=== PATIENT | female | born 1965 | race American Indian/Alaskan Native ===

== ENCOUNTER 2017-05-12 07:05 | Inpatient (IN) | payer MEDICAID ==
--- NOTE | 2017-05-12 07:10 | ED PDOC ---
Arrival/HPI <Rolando Leon - Last Filed: 05/12/17 08:50> - General Historian: Patient - History of Present Illness Time/Duration: Prior to Arrival Symptom Onset: Sudden Symptom Course: Unchanged Activities at Onset: Other (getting ready this am) Context: Home <Isra Dee - Last Filed: 05/12/17 10:58> - General Chief Complaint: Shortness Of Breath Time Seen by Provider: 05/12/17 07:20 - History of Present Illness Narrative History of Present Illness (Text): 51 F with PMH of hyperthyroidism s/p thyroidectomy (now on levothyoxine), DM, HTN, HLD presents to ED for complaint of SOB/throat swelling. Patient states that it began this morning while getting ready. Patient states that this has been going on intermittently since she had her thyroidectomy 10 days ago. Patient was prescribed levothyroxine after the procedure. She is unsure of the dose since she left it at her sister's place. Patient admits to compliance with all her medications. Patient currenlty denies any pain. Exertion makes her symptoms worse while resting seems to help. Patient can walk 1-2 blocks before getting tired. Sleeps with 1-2 pillows. Unsure of last echo. PMD: Dr. Arriola PMH: hyperthyroidism s/p thyroidectomy, DM, HTN, HLD Meds: simvastatin, amlodipine, lisinopril, metformin, levothyroxine Allergy: NKDA PSH: Thyroidectomy, Hosp: denies FH: HTN, DM Social: denies tobacco/etoh/illicit drug use 05/12/17 08:49 (Isra Dee) Past Medical History - Provider Review Nursing Documentation Reviewed: Yes - Travel History Have you recently traveled outside [place] w/in the past 3 mons?: No <Isra Dee - Last Filed: 05/12/17 10:58> Family/Social History - Physician Review Nursing Documentation Reviewed: Yes Family/Social History: Diabetes, Hypertension <Isra Dee - Last Filed: 05/12/17 10:58> Allergies/Home Meds <Rolando Leon - Last Filed: 05/12/17 08:50> <Isra Dee - Last Filed: 05/12/17 10:58> Allergies/Adverse Reactions: Allergies No Known Allergies Allergy (Verified 05/12/17 07:27) Home Medications: Home Meds Medication Instructions Recorded Confirmed Levothyroxine Sodium [Unithroid] 88 mcg PO DAILY 05/12/17 05/12/17 Lisinopril [Zestril] 10 mg PO DAILY 05/12/17 05/12/17 Simvastatin 40 mg PO DIN 05/12/17 05/12/17 amLODIPine [Norvasc] 5 mg PO DAILY 05/12/17 05/12/17 metFORMIN [glucOPHAGE] 850 mg PO BID 05/12/17 05/12/17 Review of Systems - Review of Systems Constitutional: Fatigue. absent: Weight Change, Fevers, Night Sweats Eyes: absent: Vision Changes, Photophobia, Eye Pain ENT: Other (throat feels swollen). absent: Hearing Changes, Tinnitus, Epistaxis , Sinus Congestion Respiratory: SOB, Wheezing. absent: Cough, Sputum Cardiovascular: Palpitations, BRUCE. absent: Chest Pain, Edema, Calf Pain Gastrointestinal: Diarrhea. absent: Abdominal Pain, Constipation, Nausea, Vomiting, Hematochezia, Hematemesis Genitourinary Female: absent: Dysuria, Frequency Musculoskeletal: Other (tremor). absent: Arthralgias, Back Pain, Neck Pain, Myalgias Skin: absent: Rash, Pruritis, Skin Lesions Neurological: absent: Headache, Dizziness, Focal Weakness Endocrine: absent: Diaphoresis, Polyuria, Polydipsia, Other Hemo/Lymphatic: absent: Adenopathy, Easy Bleeding, Easy Bruising Psychiatric: Anxiety. absent: Depression, Suicidal Ideation <Isra Dee - Last Filed: 05/12/17 10:58> Physical Exam <Rolando Leon - Last Filed: 05/12/17 08:50> Vital Signs Reviewed: Yes Temperature: Afebrile Blood Pressure: Normal Pulse: Regular Respiratory Rate: Normal Appearance: Positive for: Uncomfortable Pain Distress: None Mental Status: Positive for: Alert and Oriented X 3 - Systems Exam Head: Present: Atraumatic, Normocephalic Pupils: Present: PERRL Extroacular Muscles: Present: EOMI Conjunctiva: Present: Normal Mouth: Present: Moist Mucous Membranes, Normal Lips, Normal Tounge Pharnyx: No: ERYTHEMA, EXUDATE Nose (External): Present: Atraumatic Nose (Internal): Present: Normal Inspection Neck: Present: Normal Range of Motion, Trachea Midline, Other (transverse scar at base of neck) Respiratory/Chest: Present: Wheezes. No: Respiratory Distress, Accessory Muscle Use Cardiovascular: Present: Regular Rate and Rhythm, Normal S1, S2, Peripheal Pulses Present Abdomen: No: Tenderness, Distention, Normal Bowel Sounds Back: No: CVA Tenderness Upper Extremity: Present: Normal ROM, NORMAL PULSES, Neurovascularly Intact, Capillary Refill < 2s. No: Edema Lower Extremity: Present: NORMAL PULSES, Normal ROM, Neurovascularly Intact, Capillary Refill < 2 s. No: Edema Neurological: Present: GCS=15, CN II-XII Intact, Speech Normal, Motor Func Grossly Intact, Normal Sensory Function Skin: Present: Dry, Normal Color. No: Rashes Lymphatic: No: Cervical Adenopathy, Axillary Adenopathy, Inguinal Adenopathy Psychiatric: Present: Alert, Oriented x 3 <Isra Dee - Last Filed: 05/12/17 10:58> Vital Signs Temp Pulse Resp BP Pulse Ox 05/12/17 09:26 85 16 112/79 96 05/12/17 07:33 97.9 F 81 18 96/57 L 98 Medical Decision Making <Rolando Leon - Last Filed: 05/12/17 08:50> - Lab Interpretations I have reviewed the lab results: Yes Interpretation: No sign. chg./baseline - RAD Interpretation Certified Surgical Assistant: ED Physician, Radiologist - EKG Interpretation Interpreted by ED Physician: Yes Type: 12 lead EKG <Isra Dee - Last Filed: 05/12/17 10:58> ED Course and Treatment: 05/12/17 08:10 Patient was seen and evaluated with resident. Came up with plan and treatment together. A 51 year old female with sensation of throat swelling and shortness of breath / BRUCE. On physical exam, patient has mild exp wheezing. In no resp. distress. Pharynx and tonsils appear normal. Tongue unremarkable. No floor of mouth pain or elevation. Pt speaking full sentences without difficulty and in no resp distress. 05/12/17 08:51 after nebs, pt's wheezing improved BNP unremarkable pt reports she is feeling better, but remains symptomatic. 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 Case discussed with Dr. Dominguez and she accepted the admission. She instructed for Pulmonology consult (Dr. Quiñonez) (Isra Dee) - Lab Interpretations Narrative Lab Interpretation (Text): Hgb 10.7 otherwise no abnormality or significant change from baseline (Isra Dee) Lab Results: 05/12/17 07:35 05/12/17 07:35 Lab Results 05/12/17 08:12: NT-Pro-B Natriuret Pep 19.9 05/12/17 07:35: Sodium 136, Potassium 4.1, Chloride 99, Carbon Dioxide 27, Anion Gap 14, BUN 10, Creatinine 1.1, Est GFR ( Amer) > 60, Est GFR (Non- Af Amer) 52, Random Glucose 93, Calcium 8.6, Magnesium 2.0, Total Bilirubin 0.5 , AST 23, ALT 24, Alkaline Phosphatase 84, Lactate Dehydrogenase 448, Total Creatine Kinase 147, Troponin I < 0.01, Total Protein 8.0, Albumin 4.2, Globulin 3.8, Albumin/Globulin Ratio 1.1 05/12/17 07:35: WBC 7.3, RBC 4.40, Hgb 10.7 L, Hct 33.1 L, MCV 75.2 L, MCH 24.3 L, MCHC 32.3, RDW 16.0 H, Plt Count 233, MPV 10.4, Gran % 61.1, Lymph % (Auto) 31.0, [place] % (Auto) 5.6, Eos % (Auto) 1.9, Baso % (Auto) 0.4, Gran # 4.47, Lymph # 2.3, [place] # 0.4, Eos # 0.1, Baso # 0.03 - RAD Interpretation Narrative RAD Interpretations (Text): CXR: No active disease (Isra Dee) Radiology Orders: 05/12/17 07:44 CHEST PORTABLE [RAD] Stat - EKG Interpretation EKG Interpretation (Text): NSR at 79 bpm (Isra Dee) - Medication Orders Current Medication Orders: Discontinued Medications Albuterol/Ipratropium (Duoneb 3 Mg/0.5 Mg (3 Ml) Ud) 3 ml IH STAT STA Stop: 05/12/17 07:32 Last Admin: 05/12/17 07:52 Dose: 3 ml Diphenhydramine HCl (Benadryl) 25 mg IVP STAT STA Stop: 05/12/17 07:33 Last Admin: 05/12/17 07:52 Dose: 25 mg Methylprednisolone (Solu-Medrol) 125 mg IVP STAT STA Stop: 05/12/17 07:32 Last Admin: 05/12/17 07:53 Dose: 125 mg - Scribe Statement The provider has reviewed the documentation as recorded by the Scribe <Rolando Leon - Last Filed: 05/12/17 08:50> - PA / SOFTWARE TEST DEVELOPER / Resident Statement / has reviewed & agrees with the documentation as recorded. MD/ has examined the patient and agrees with the treatment plan. <Isra Dee - Last Filed: 05/12/17 10:58> - Scribe Statement Rajesh Calle Provider Scribe Attestation: All medical record entries made by the Scribe were at my direction and personally dictated by me. I have reviewed the chart and agree that the record accurately reflects my personal performance of the history, physical exam, medical decision making, and the department course for this patient. I have also personally directed, reviewed, and agree with the discharge instructions and disposition. (Rolando Leon) Disposition/Present on Arrival <Rolando Leon - Last Filed: 05/12/17 08:50> - Present on Arrival Any Indicators Present on Arrival: No History of DVT/PE: No History of Uncontrolled Diabetes: No Urinary Catheter: No History of Decub. Ulcer: No - Disposition Have Diagnosis and Disposition been Completed?: Yes Disposition Time: 09:30 Patient Plan: Admission, Telemetry <Isra Dee - Last Filed: 05/12/17 10:58> - Disposition Diagnosis: Shortness of breath Disposition: HOSPITALIZED Patient Problems: Current Active Problems Problem Status Onset Shortness of breath Acute Condition: STABLE
[2017-05-12] MEDS ORDERED: Albuterol-Ipratrop 3 mg / 0.5 (3 ml) UD IH STA (07:31)
[2017-05-12] MEDS ORDERED: DiphenhydrAMINE 50 mg/ml Inj IVP STA (07:32)
[2017-05-12 07:47] VITALS: BMI 33.6
[2017-05-12 07:53] LABS: BASO # 0.03 K/mm3 (0.0-2.0); BASO % 0.4 % (0.0-3.0); EOS # 0.1 (0.0-0.7); EOS % 1.9 % (1.5-5.0); GRAN # 4.47 (1.4-6.5); GRAN % 61.1 % (50.0-68.0); HEMOGLOBIN 10.7 gm/dL (12.0-16.0); LYMPH # 2.3 (1.2-3.4); MEAN CELL VOLUME 75.2 fL (80.0-105.0); MEAN CORPUSCULAR HEMOGLOBIN 24.3 pg (25.0-35.0); MEAN CORPUSCULAR HGB CONC 32.3 g/dl (31.0-37.0); MEAN PLATELET VOLUME 10.4 fl (7.0-11.0); MONO # 0.4 (0.1-0.6); MONO % 5.6 % (1.0-6.0); PLATELET COUNT 233 10^3/uL (120.0-450.0); WHITE BLOOD COUNT 7.3 10^3/ul (4.5-11.0)
[2017-05-12 08:06] LABS: ALB/GLOB RATIO 1.1 (1.1-1.8); ALBUMIN 4.2 g/dL (3.0-4.8); ALT/SGPT 24 U/L (7-56); AST/SGOT 23 U/L (15-39); BLOOD UREA NITROGEN 10 mg/dL (7-21); CALCIUM 8.6 mg/dL (8.4-10.5); GFR AFRICAN-AMERICAN > 60; GFR NON-AFRICAN AMERICAN 52
[2017-05-12 08:26] LABS: TROPONIN I < 0.01 ng/mL
--- NOTE | 2017-05-12 09:11 | RAD ---
HISTORY: Shortness of breath COMPARISON: No prior. FINDINGS: LUNGS: The lungs are well inflated and clear. PLEURA: No significant pleural effusion identified, no pneumothorax apparent. CARDIOVASCULAR: Normal. OSSEOUS STRUCTURES: No significant abnormalities. VISUALIZED UPPER ABDOMEN: Normal. OTHER FINDINGS: None. IMPRESSION: No active pulmonary disease.
[2017-05-12 11:45] LABS: T4 7.6 ug/dL (5.5-11.0)
[2017-05-12] MEDS ORDERED: Pneumococcal 23-Valent Vaccine IM ONE (13:17)
[2017-05-12] MEDS: Albuterol-Ipratrop 3 mg / 0.5 (3 ml) UD IH SCH ×2 (13:59→19:47)
[2017-05-12] MEDS: cefTRIAXone 1 gm 1 GM/100 ML BAG IVPB SCH (14:42)
--- NOTE | 2017-05-12 16:37 | CARD ---
APPROVED REPORT EKG Measurement Heart [id number] <Conclusion> Normal sinus rhythm Possible Left atrial enlargement Borderline ECG
[2017-05-12] MEDS: Insulin Reg-LOW-Coverage SC SCH ×2 (17:10→21:31)
[2017-05-12] MEDS: MethylPREDNISolone 40 mg Vial IVP SCH (21:27)
--- NOTE | 2017-05-13 06:25 | CON ---
ENDOCRINOLOGY CONSULTATION LOCATION: Room 374. HISTORY OF PRESENT ILLNESS: This is a 51-year-old female with known history of type 2 diabetes, hypertension, and recent hypothyroidism presenting here with progressive shortness of breath, initially on exertion and than at rest and has been evaluated to have exacerbation of COPD and asthmatic bronchitis and started on IV steroids therapy as noted. She has been referred now for endocrine evaluation and management. PAST MEDICAL HISTORY: History of recent thyroidectomy about 10 days ago and was started on levothyroxine replacement therapy postoperatively, history of type 2 diabetes, currently on metformin given at 850 mg b.i.d., history of hypertension, and dyslipidemia. FAMILY HISTORY: Positive for diabetes and hypertension. SOCIAL HISTORY: The patient has a supportive family. No known substance use. REVIEW OF SYSTEMS: As mentioned above, admits to generalized body weakness with easy fatigability and tiredness and suboptimal energy level. Also admits to episodic bouts of dizziness and lightheadedness worse on the day of admission. No recent chest pain, palpitations or PND, but admits to progressive shortness of breath, initially on exertion and than at rest. Her oral intake has been variable and suboptimal with nausea, dyspepsia, and vague upper abdominal pain. Also admits to habitual constipation. PHYSICAL EXAMINATION: GENERAL: This is an overweight female in no apparent distress. VITAL SIGNS: Blood pressure of 140/80, pulse of 70 beats per minute and regular, temperature 98, and respirations of 20, height is 5 feet 3 inches, and weight is 190 pounds. HEENT: Head is normocephalic. Eyes anicteric with pink conjunctivae. Funduscopy not possible at this time. Ears, nose and throat otherwise normal. NECK: Supple. Thyroid gland is nonpalpable with healing incision in the anterior aspect of the neck in the thyroid bed area and no cervical adenopathy noted. HEART: Adynamic precordium. S1 and S2 is rapid and regular. LUNGS: Clear to auscultation. ABDOMEN: Flat and soft with positive bowel sounds. EXTREMITIES: No peripheral edema. Pulses are +2 bilaterally. LABORATORY DATA: Her chemistry showed a BUN of 10, sodium 136, potassium 4.1, chloride 99, CO2 of 27, glucose 93, and creatinine 1.1. Her T4 is 7.6 with a TSH of 58.6. ASSESSMENT: This is a 51-year-old female with overt surgical hypothyroidism as expected with recent thyroidectomy procedure as noted. She remains; however, clinically euthyroid at this time, but historically has already constitutional symptoms of easy fatigability, tiredness and progressive shortness of breath especially on exertion. PLAN OF MANAGEMENT: The patient clearly at this time needs a much higher dose regimen for the levothyroxine and as expected from the recent thyroidectomy procedure as undertaken. We will increase the levothyroxine to 125 mcg daily as ordered to start tomorrow morning before breakfast. We will obtain comprehensive thyroid hormonal profile with a total T4, TSH, and free T4 with thyroid peroxidase antibody, which will confirm and indicates the presence of underlying thyroid autoimmunity. We will obtain serial chemistries and supplement accordingly as needed. We will follow and advise accordingly. Zulema Flowers MD
--- NOTE | 2017-05-13 06:26 | CON ---
PULMONARY CONSULTATION DATE: 05/12/2017 REFERRING PHYSICIAN: Dr. Dominguez REASON FOR CONSULT: Cough, shortness of breath, stridor on admission, status post thyroidectomy. HISTORY OF PRESENT ILLNESS: This is a 51 years old female with past medical history significant for thyroid goiter with hyperthyroidism, recently has thyroidectomy, that was just few days ago with diabetes, hypertension, hyperlipidemia, was sent home about 4 days ago. While at home, started developing more short of breath, stridor, so comes to emergency room, found to have a wheezing, and upper airway . She receives steroids, inhaled bronchodilator with good response, presently sitting up in a chair, feels better, feels a little short of breath, no hemoptysis, no hematemesis, no hematuria, no diarrhea. Does not know if snores, but daytime sleepy and tired. PAST MEDICAL HISTORY: Thyroid goiter, status post thyroidectomy, diabetes, hypertension, and hyperlipidemia. ALLERGIES: NONE KNOWN. SOCIAL HISTORY: Denies any smoking or alcohol use. FAMILY HISTORY: Positive for diabetes and hypertension. HOME MEDICATIONS: Include simvastatin, amlodipine, lisinopril, metformin, and levothyroxine. Presently also DuoNeb q. 6 hours, insulin coverage, and Solu-Medrol 40 mg q. 12 hours. REVIEW OF SYSTEMS: No headaches, no rhinitis, has a soreness of the incision site, mild shortness of breath, no chest pain, no nausea,no vomiting. Denies leg pain or leg swelling. PHYSICAL EXAMINATION GENERAL: Sitting up in the chair, in no acute distress. VITAL SIGNS: Temperature is 98, heart rate is 98, respiratory rate is 18, blood pressure 102/73, pulse ox 98% on room air. HEENT: Moist mucous membranes. Crowded airway. Mallampati score is III. NECK: Supple. Has a neck incision, healing well. Mild tenderness. LUNGS: Fair airflow with few rhonchi. There is no stridor at present time. HEART: S1 and S2. ABDOMEN: Soft, nontender, no organomegaly. EXTREMITIES: No edema. NEUROLOGIC: Awake, alert, follow simple commands. LABORATORY DATA: Shows hemoglobin 10.7, hematocrit 33.1, WBC 7.3, platelet is 233. Sodium 136, potassium 4.1, chloride 99, bicarbonate 27, BUN 10, creatinine 1.1, glucose 131, calcium 8.6, magnesium 2.0, AST 23, ALT 24, alk phos is 84, troponin less than 0.01, proBNP 19, albumin is 4.2, TSH is 58. Chest x-ray is unremarkable. No infiltrate. IMPRESSION AND PLAN: Status post thyroidectomy, according to patient it was benign goiter, but no cancer; history of diabetes; hypertension; hypothyroid; need to rule out abscess or hematoma. We will get CT of the neck without contrast. Continue IV and inhaled bronchodilator, keep head at 45 degree. Continue Synthroid. Thank you and we will follow with you. Devika Quiñonez MD
[2017-05-13 07:00] LABS: ALB/GLOB RATIO 1.1 (1.1-1.8); ALBUMIN 4.1 g/dL (3.0-4.8); ALT/SGPT 23 U/L (7-56); AST/SGOT 24 U/L (15-39); BLOOD UREA NITROGEN 14 mg/dL (7-21); GFR AFRICAN-AMERICAN > 60; GFR NON-AFRICAN AMERICAN 52
[2017-05-13 07:23] LABS: FREE T4 0.73 ng/dL (0.78-2.19); T4 6.5 ug/dL (5.5-11.0)
[2017-05-13] MEDS: Insulin Reg-LOW-Coverage SC SCH ×4 (07:54→22:06)
[2017-05-13] MEDS: Albuterol-Ipratrop 3 mg / 0.5 (3 ml) UD IH SCH ×4 (08:03→22:06)
[2017-05-13] MEDS: Levothyroxine 125 MCG TAB PO SCH (08:33)
[2017-05-13] MEDS: cefTRIAXone 1 gm 1 GM/100 ML BAG IVPB SCH (09:51)
[2017-05-13] MEDS: MethylPREDNISolone 40 mg Vial IVP SCH ×2 (09:51→22:08)
[2017-05-13] MEDS ORDERED: Levothyroxine 88 MCG TAB PO SCH (10:00)
--- NOTE | 2017-05-13 14:47 | CT ---
PROCEDURE: CT NECK WITHOUT CONTRAST HISTORY: s/p thyroidectomy, with strider COMPARISON: None. TECHNIQUE: CT of the neck without intravenous contrast as requested. Coronal and sagittal reformats generated. Radiation dose: DLP 287 mGy-cm This CT exam was performed using one or more of the following dose reduction techniques: Automated exposure control, adjustment of the mA and/or kV according to patient size, and/or use of iterative reconstruction technique. FINDINGS: NASOPHARYNX: Unremarkable. SUPRAHYOID NECK: Unremarkable oropharynx, oral cavity, parapharyngeal space and retropharyngeal space. INFRAHYOID NECK: Postoperative thyroidectomy change are identified including the operative site containing fluid and trace gas with trace gas identified deep to the right external hiatal aid muscle most likely. This limited gas is likely superficial to the thyrohyoid muscle. The lack of intravenous contrast limits the evaluate limits the full characterization of this postoperative fluid collection which is positioned slightly greater the right than left thyroid bed overlying the Superior and mid tracheal levels without displacement or deformity of the trachea resulting. The collection measures 4.1 x 1.7 x 2.2 cm (series changes by anteroposterior by superoinferior dimensions). Fluid does not appear to dissect below the level of clavicles which is the termination of the this CT examination. Fluid collections is felt to be postoperative with abscess not favored but not fully excluded.. Further clinical correlation pelvis advised given lack of intravenous contrast. Images through the larynx reveal no vocal cord deviation or deformity. The pharyngeal laryngeal and tracheal airway appear widely patent. MASS: None. GLANDS: Parotid and submandibular glands unremarkable. Prior thyroidectomy. LYMPH NODES: Normal. No lymphadenopathy. CERVICAL SPINE: No fracture or focal lesion. OTHER FINDINGS: None. IMPRESSION: 1. Post thyroidectomy, a 4.1 cm fluid collection is appreciate the operative site with associated trace gas dissecting deep to the right sided strap muscles. No gas seen associated with the fluid collection specifically and postoperative seroma is favored over abscess. The lack images contrast limits definition of this fluid collection, particularly in evaluation for potential abscess and further clinical correlation is advised. Clinical and potential CT follow-up is advised. 2. Widely patent supra and infrahyoid airway as discussed above.
--- NOTE | 2017-05-13 15:38 | PN ---
DATE: 05/13/2017 PULMONARY PROGRESS NOTE REFERRING PHYSICIAN: Dr. Dominguez. SUBJECTIVE: She is lying on the bed, head at 47 degree; feels better; no stridor; no cough; no sputum production; no nausea or vomiting. Denies leg pain or leg swelling. PHYSICAL EXAMINATION: GENERAL: No acute distress. VITAL SIGNS: Temperature is 98, heart rate is 102, respiratory rate is 20, blood pressure 110/69, pulse ox 100% on room air. HEENT: Moist mucous membranes. Crowded airway. NECK: Supple. No JVD. Neck wound healing well. LUNGS: Fair airflow with few rhonchi. HEART: S1 and S2. ABDOMEN: Soft and nontender. No organomegaly. EXTREMITIES: There is no edema. NEUROLOGIC: Awake, alert, follows simple commands. MEDICATIONS: She is on DuoNeb q. 6 hours; metformin 850 mg twice a day; insulin coverage; Lipitor 5 mg daily; Pepcid 40 mg daily; Rocephin 1 g daily; Solu-Medrol 40 mg q. 12 hours; Synthroid 125 mcg daily; Zestril 10 mg daily. LABORATORY DATA: Shows sodium 137, potassium 4.9, chloride 101, bicarbonate 26, BUN 14, creatinine 1.1, glucose 145, calcium is 9.0, AST 24, ALT 23, alk phos is 73, total protein is 7.7, albumin 4.1, free T4 is 0.7, free TSH is 6.79. CT of the neck done, but report is still pending. IMPRESSION AND PLAN: Status post thyroidectomy, according to the patient which was benign goiter; history of diabetes; hypertension; hypothyroid; admitted with stridor and shortness of breath. CT of the neck is done; report is pending. Continue bronchodilator, keep head at 45 degree, gastric prophylaxis, seen by endocrinology, replacement therapy has been given. Thank you and we will follow with you. Devika Quiñonez MD
--- NOTE | 2017-05-13 20:19 | HP ---
DATE: 05/12/2017 CHIEF COMPLAINT: Shortness of breath. HISTORY OF PRESENT ILLNESS: Ms. Diana Brumfield is a 51 years old lady with history of hyperthyroidism status post thyroidectomy, now on levothyroxine, done in [facility], history of diabetes mellitus, hypertension, hypercholesterolemia came to the emergency room with complaints of shortness of breath, throat swelling. The patient says that this began this morning while getting ready. The patient says that this has been going on intermittently, shortness of breath. She had her thyroidectomy 10 days ago. The patient was prescribed levothyroxine after procedure. She is unsure of dose since she left it at her sister's place. The patient admits to compliant with all her medication. The patient currently denies any nausea, vomiting, diarrhea and according to her shortness of breath especially come on exertion. The patient can walk 1-2 block before getting tired. Sleep with 1-2 pillows. Unsure about the last echo. The patient last seen in the emergency room by me. Discussion done with Dr. Quiñonez. PAST MEDICAL HISTORY: Hyperthyroidism status post thyroidectomy, diabetes mellitus, hypertension, hypercholesterolemia. HOME MEDICATIONS: Simvastatin, amlodipine, lisinopril, metformin, levothyroxine. ALLERGIES: THE PATIENT IS NOT ALLERGIC WITH ANY MEDICATIONS. PAST SURGICAL HISTORY: Thyroidectomy, section. HABITS: Denies smoking, drugs, and ethanol. REVIEW OF SYSTEMS: The patient is seen and examined at the bedside in ER. Complaining about swelling in the neck and shortness of breath on exertion. No nausea, vomiting, or diarrhea. No hematochezia. No headache. No dizziness. No swelling of the leg. No hematuria. PHYSICAL EXAMINATION VITAL SIGNS: Temperature 98.2, pulse 79, blood pressure 108/65, respiratory rate 20. HEENT: Head is normocephalic and atraumatic. Eyes PERRLA. Extraocular muscles are intact. Conjunctivae clear. Nose patent. Mucous membranes moist. NECK: Supple. Front of the neck at the place of thyroidectomy scar jenifer, there is a swelling. CHEST: Clear to auscultation. HEART: S1 and S2 positive. ABDOMEN: Soft. Bowel sounds positive. No organomegaly. EXTREMITIES: No edema. No cyanosis. NEUROLOGIC: The patient is awake and alert. Moving all four extremities. No focal deficit. LABORATORY DATA: White blood cell 7.3, hemoglobin 10.7, hematocrit 33.1, and platelet 233. Sodium 137, potassium 4.9, BUN 14, creatinine 1.1, and glucose 114. TSH 6.79. ASSESSMENT AND PLAN: Ms. Diana Brumfield a 51 years old lady with anemia, diabetes mellitus, history of hyperthyroidism status post thyroidectomy now has hypothyroidism. Recall consult with Lionel Poole, [facility] to get her opinion with CAT scan of the neck. Soft tissue results are pending. History of thyroid goiter, hypercholesterolemia, shortness of breath and swelling in the neck. According to the patient, she has benign goiter and no cancer. Need to rule out abscess or hematoma at surgical place. Continue IV and inhaled bronchodilators. Keep head elevation for 45 degrees. Continue Synthroid. Discussion done with Dr. Quiñonez. GI and DVT prophylaxis. We will follow. Edie Dominguez MD [id number]
--- NOTE | 2017-05-13 22:33 | PN ---
ENDOCRINOLOGY FOLLOWUP NOTE Room #374. SUBJECTIVE: This is a 51-year-old female with recent thyroidectomy and supervening surgical hypothyroidism and is now being followed closely for metabolic management. She also presented here with progressive shortness of breath and was evaluated to have acute exacerbation of asthmatic bronchitis and COPD and has been started on IV steroids therapy as given. Her latest chemistry showed BUN of 14, sodium 137, potassium 4.9, chloride 101, CO2 of 26, glucose 126, and creatinine 1.1. Her glucose levels have ranged from 114 to 145 and 156 mg/dL. Her hemoglobin A1c 6.5%, which is near optimal and indicative of very good control of her diabetic condition and just oral hypoglycemic therapy is given. Her latest thyroid study showed T4 is 6.5 with a TSH of 6.79 and free T4 of 0.73, so at this time, we will continue the higher dosing of the levothyroxine given as 125 mcg daily before breakfast as ordered. We will obtain serial chemistries and supplement accordingly as needed. We will follow with you. Zulema Flowers MD
[2017-05-14] MEDS: Albuterol-Ipratrop 3 mg / 0.5 (3 ml) UD IH SCH ×4 (01:01→19:50)
--- NOTE | 2017-05-14 06:23 | PN ---
SUBJECTIVE: The patient is seen and examined at the bedside. Actually, she went for CAT scan of the neck, but cannot tolerate the procedure, then I had length of time discussion with the nurse and ordered Xanax before procedure and after giving Xanax, she was comfortable, then CAT scan of the neck was done. No nausea, vomiting, or diarrhea. No cough. No sputum production. Denies swelling of the leg. No hematuria, no hematochezia. PHYSICAL EXAMINATION: VITAL SIGNS: Temperature is 98, heart rate is 102, respiratory rate 20, and blood pressure 110/70. HEENT: Head is normocephalic and atraumatic. Eyes; PERRLA. Extraocular muscles are intact. Conjunctivae clear. Nose patent. Mucous membranes moist. NECK: Supple. No JVD. Neck wound healing very well, but under the wound, there is slight swelling. LUNGS: Fair airflow with few rhonchi. HEART: S1 and S2 positive. ABDOMEN: Soft and nontender. No organomegaly. EXTREMITIES: No edema. No cyanosis. NEUROLOGIC: The patient is awake and alert. Moving all four extremities. No focal deficit. MEDICATIONS: DuoNeb, metformin, Lipitor, Pepcid, Rocephin, Solu-Medrol, Synthroid, and Zestril. LABORATORY DATA: Sodium 137, potassium 4.9, BUN 14, creatinine 1.1, and glucose 145. AST 24, ALT 23, and TSH 6.79. ASSESSMENT AND PLAN: Ms. Octaviano Ortiz is 51 years old lady status post thyroidectomy, thyroid goiter as per patient it was benign, history of uncontrolled diabetes mellitus, hypertension, hypothyroidism. Shortness of breath is better. CAT scan of the neck done. The water engineer is on the case. Continue bronchodilators, gastric prophylaxis. Reviewed Dr. Quiñonez's notes. Reviewed Dr. Zulema Flowers's notes also. CAT scan of the neck showed there is a 4.1 cm fluid collection, it is appreciated with the operative site with associated trace air dissecting deep to the right side strap muscles. I reviewed CAT scan, GI and DVT prophylaxis, and repeat labs. We will follow. Edie Dominguez MD MTDSanjiv
[2017-05-14] MEDS: Insulin Reg-LOW-Coverage SC SCH ×4 (07:53→21:23)
[2017-05-14] MEDS: Levothyroxine 125 MCG TAB PO SCH (08:12)
[2017-05-14] MEDS: cefTRIAXone 1 gm 1 GM/100 ML BAG IVPB SCH (09:38)
[2017-05-14] MEDS: MethylPREDNISolone 40 mg Vial IVP SCH ×2 (09:39→21:27)
--- NOTE | 2017-05-14 17:06 | MRI ---
PROCEDURE: MRI NECK WITHOUT CONTRAST HISTORY: neck swelling; recent h/o thyroidectomy COMPARISON: None. TECHNIQUE: Multiplanar multisequence MR images of the neck were obtained without gadolinium enhancement. FINDINGS: NASOPHARYNX: Unremarkable. SUPRAHYOID NECK: Unremarkable oropharynx, oral cavity, parapharyngeal space and retropharyngeal space. INFRAHYOID NECK: Unremarkable larynx, hypopharynx, and supraglottic space. Vocal cords intact. MASS: None. GLANDS: Parotid and submandibular glands unremarkable. By history the thyroid has been recently removed. There is some edema and fluid within the thyroid bed and the subcutaneous tissues anterior to the thyroid. There is no evidence of a discrete mass or hematoma LYMPH NODES: Normal. No lymphadenopathy. VASCULAR STRUCTURES: Unremarkable. OTHER FINDINGS: None. IMPRESSION: Edema and fluid within the region of the recently resected thyroid. No evidence of a discrete hematoma or abscess
--- NOTE | 2017-05-14 19:37 | CP.PCM.PCO ---
Physician Communication Note - Physician Communication Note Physician Communication Note: I will be away til 06/01:Aj pizarro
--- NOTE | 2017-05-14 20:41 | PN ---
ENDO FOLLOWUP NOTE ROOM: 374. This is a 51-year-old female with recent admission for progressive shortness of breath and acute exacerbation of COPD and asthmatic bronchitis, currently on IV steroid therapy and is also now being followed closely for metabolic management. She had a recent thyroidectomy for a multinodular goiter and currently has been evaluated to have overt hypothyroidism and started on a higher dose of levothyroxine replacement therapy for which she is tolerating fairly well at this time. Her latest glucose values have ranged from 133 to 150 mg/dL. Her latest chemistries showed a BUN of 14, sodium 137, potassium 4.9, chloride 101, CO2 of 26, glucose 126, creatinine 1.1. Her latest thyroid study shows a T4 of 6.5 with a TSH of 6.79 and the free T4 of 0.73. So at this time, we will continue the same levothyroxine dose, modify to higher regimen of 125 mcg once daily before breakfast as ordered. We will titrate as indicated to optimize metabolic control. We will follow her twice . Zulema Flowers MD
--- NOTE | 2017-05-15 01:01 | CP.PCM.CON ---
History of Present Illness - History of Present Illness History of Present Illness: Consult note- perincisional fluid General Surgery Dr. Hopper 51 F PMH of DM, HTN, HLD hyperthyroidism s/p thyroidectomy at [facility] currently on levothyroxine presented to ED for SOB/throat swelling. Pt had surgery on the 05/01/17. Pt complaining that voice is not back to normal and has difficulty with deep breathes. Surgeon was Dr. Carrera and does not feel comfortable going back to the surgeon. During the procedure she was taken back twice on the same day as the pressure claims "pressure release". Patient currenlty denies any pain. PMH: hyperthyroidism s/p thyroidectomy, DM, HTN, HLD PSH: Thyroidectomy, Allergy: NKDA Social: denies tobacco/etoh/illicit drug use Past Patient History - Past Social History Smoking Status: Never Smoked - CARDIAC Hx Cardiac Disorders: Yes Hx Hypertension: Yes - PULMONARY Hx Respiratory Disorders: No - NEUROLOGICAL Hx Neurological Disorder: No - ENDOCRINE/METABOLIC Hx Endocrine Disorders: Yes Hx Diabetes Mellitus Type 2: Yes Other/Comment: thyroidectomy 05/01/17 - INTEGUMENTARY Other/Comment: transverse scar base of neck - MUSCULOSKELETAL/RHEUMATOLOGICAL Hx Falls: No - GASTROINTESTINAL Other/Comment: had thyroidectomy 05/01/17 was vomiting and unable to eat post op now eating oranges and applesause but having watery stools after eating - GENITOURINARY/GYNECOLOGICAL Hx Genitourinary Disorders: Yes (dx with fibroids 5 yrs ago) Other/Comment: has menses 2x's a month normal flow as per pt - PSYCHIATRIC Hx Substance Use: No - SURGICAL HISTORY Hx Surgeries: Yes Hx Appendectomy: Yes (age 7) - ANESTHESIA Hx Anesthesia: Yes Hx Anesthesia Reactions: No Hx Malignant Hyperthermia: No Meds Allergies/Adverse Reactions: Allergies Allergy/AdvReac Type Severity Reaction Status Date / Time No Known Allergies Allergy Verified 05/12/17 07:27 - Medications Medications: Current Medications Albuterol/Ipratropium (Duoneb 3 Mg/0.5 Mg (3 Ml) Ud) 3 ml IH [id number] [facility] Last Admin: 05/14/17 19:50 Dose: 3 ml Amlodipine Besylate (Norvasc) 5 mg PO DAILY [facility] Last Admin: 05/14/17 09:39 Dose: 5 mg Atorvastatin Calcium (Lipitor) 20 mg PO DIN [facility] Last Admin: 05/14/17 17:19 Dose: 20 mg Famotidine (Pepcid) 40 mg PO HS [facility] Last Admin: 05/14/17 21:28 Dose: 40 mg Ceftriaxone Sodium (Rocephin 1 Gram Ivpb) 1 gm in 100 mls @ 100 mls/hr IVPB DAILY [facility] PRN Reason: Protocol Last Admin: 05/14/17 09:38 Dose: 100 mls/hr Insulin Human Regular (Humulin R Low) 0 units SC ACHS [facility] PRN Reason: Protocol Last Admin: 05/14/17 21:23 Dose: Not Given Levothyroxine Sodium (Synthroid) 125 mcg PO ACB [facility] Last Admin: 05/14/17 08:12 Dose: 125 mcg Lisinopril (Zestril) 10 mg PO DAILY [facility] Last Admin: 05/14/17 09:38 Dose: 10 mg Metformin HCl (Glucophage) 850 mg PO BID [facility] Last Admin: 05/14/17 17:19 Dose: 850 mg Methylprednisolone (Solu-Medrol) 20 mg IVP Q12 [facility] Last Admin: 05/14/17 21:27 Dose: 20 mg Physical Exam - Constitutional Appears: Non-toxic, No Acute Distress - Eye Exam Eye Exam: EOMI - ENT Exam ENT Exam: Mucous Membranes Moist - Neck Exam Additional comments: two incisions suprasternal. C/D/I indurated non-fluctuant - Respiratory Exam Respiratory Exam: Clear to Auscultation Bilateral, NORMAL BREATHING PATTERN. absent: Accessory Muscle Use, Chest Wall Tenderness, Rales - Cardiovascular Exam Cardiovascular Exam: +S1, +S2 - GI/Abdominal Exam GI & Abdominal Exam: Normal Bowel Sounds, Soft. absent: Distended, Guarding, Hernia, Mass Results - Vital Signs Recent Vital Signs: Last Vital Signs Temp 98.3 F 05/14/17 22:00 Pulse 98 H 05/14/17 22:00 Resp 19 05/14/17 22:00 BP 112/80 05/14/17 22:00 Pulse Ox 99 05/14/17 22:00 - Labs Result Diagrams: 05/12/17 07:35 05/13/17 06:00 Labs: Laboratory Results - last 24 hr 05/13/17 05/14/17 05/14/17 06:00 07:24 11:22 POC Glucose (mg/dL) 118 H 133 H Thyroperoxidase Ab <1 Thyroglobulin Antibody <1 05/14/17 05/14/17 15:42 21:11 POC Glucose (mg/dL) 150 H 134 H Thyroperoxidase Ab Thyroglobulin Antibody Assessment & Plan - Assessment and Plan (Free Text) Assessment: 51F hypothyroidsm s/p thyroidectomy at [place], with periincsional fluid Plan: c/w medical management recommend f/u with primary surgeon. CT scan shows 4.1cm fluid colletion air dissecting deep to the right side strap muslces. abscess vs seroma - recommend Pt f/u with surgeon at [facility] further recs per Dr. Hopper will d/w Dr. Ward Lacy PGY1
[2017-05-15] MEDS: Albuterol-Ipratrop 3 mg / 0.5 (3 ml) UD IH SCH ×4 (01:06→19:43)
--- NOTE | 2017-05-15 01:19 | PN ---
DATE: 05/14/2017 PULMONARY PROGRESS NOTE REFERRING PHYSICIAN: Dr. Dominguez SUBJECTIVE: She is lying in the bed, head at 45 degrees. Family is at the bedside. Has some hoarseness. No chest pain. No nausea. No vomiting. No diarrhea. No leg pain or leg swelling. PHYSICAL EXAMINATION GENERAL: No acute distress. VITAL SIGNS: Temperature is 98, heart rate is 98, respiratory rate is 20, blood pressure 112/80, pulse ox 99% on room air. HEENT: Moist mucous membranes. Crowded airway. The surgical site healing well. No stridor. LUNGS: Fair airflow with few rhonchi. HEART: S1, S2. ABDOMEN: Soft and nontender. No organomegaly. EXTREMITIES: No edema. NEUROLOGIC: Awake and alert. Follows simple commands. LABORATORY DATA: Shows blood sugar this morning 134. Had MRI of the neck done yesterday shows post-thyroidectomy cm fluid collection is appreciated the operative site with associated trace gases dissecting deep into the right side of the strap muscle. Postoperative seroma is favor over abscess. Widely patent supra and infra airways. Had MRI of the orbit, face and neck done today, which shows edema in the fluid within the region of the recent dissected thyroid. No evidence of discrete hematoma or abscess. MEDICATIONS: She is on DuoNeb q. 6 hours; Glucophage 850 mg twice a day; insulin coverage; Lipitor 20 mg daily; Norvasc 10 mg daily, Pepcid 40 mg daily; Rocephin 1 g daily; Solu-Medrol 20 mg q. 12 hours; Synthroid 125 mcg daily; and Zestril 10 mg daily. ASSESSMENT AND PLAN: Status post thyroidectomy, incision site fluid collection, admitted with shortness of breath, seems like upper airway obstruction of a stridor, diabetes, hypertension, hypothyroidism, responding well to steroids and bronchodilators, scheduled to be seen by surgery or may need to consult ENT, keep head elevated at 45 degrees, being followed by endocrinology to adjust Synthroid doses, gastric and deep venous thrombosis prophylaxis. Devika Quiñonez MD
--- NOTE | 2017-05-15 03:33 | PN ---
DATE: 05/14/2017 SUBJECTIVE: The patient seen and examined at the bedside on 05/14/2017. No nausea, vomiting, or diarrhea. No hematuria and no hematochezia. No headaches or dizziness. No chest pain. No palpitation. No shortness of breath. PHYSICAL EXAMINATION VITAL SIGNS: Temperature 98.3, pulse 98, blood pressure 112/80, respiratory rate 19. HEENT: Head is normocephalic, atraumatic. Eyes; PERRLA, extraocular muscles intact, conjunctivae clear. Nose patent. Mucous membranes moist. NECK: Supple. No carotid bruits. No JVD or thyromegaly. CHEST: Bilaterally symmetrical. HEART: S1 and S2 positive. LUNGS: Clear to auscultation. ABDOMEN: Soft. Bowel sounds present. No organomegaly. EXTREMITIES: No edema. No cyanosis. NEUROLOGIC: The patient is awake and alert. Moving all four extremities. No focal deficit.. MEDICATIONS: Albuterol, Glucophage, insulin, Lipitor, Norvasc, Pepcid, Rocephin, Solu-Medrol, Synthroid and Zestril. LABORATORY DATA: White blood cell 7.3, hemoglobin 10.7, hematocrit 33.1, and platelets 233. Glucose 134 and 150. Thyroid peroxidase antibody less than 1, thyroglobulin antibody less than 1. ASSESSMENT AND PLAN: The patient is a 51-year-old female with status post thyroidectomy, according to the patient which was benign goiter, history of diabetes mellitus, hypertension, hypothyroidism, came with stridor and shortness of breath. CT of the neck and MRI of the neck. MRI of the orbit, face and neck done per Dr. Dylan Gonzalez. Edema and fluid within the region of the recently resected thyroid. No evidence of discrete hematoma or abscess. Surgical consult called by Dr. Forbes, but Dr. Forbes is away for vocation, Dr. Hopper is covering. We got surgical consult to get the second opinion. Endocrinology is on the case. Looks like the patient had exacerbation of chronic obstructive pulmonary disease, asthma, bronchitis. Currently getting steroids. Closely following metabolic management. Now, she has hypothyroidism, taking levothyroxine for replacement therapy. Gastrointestinal and deep venous thrombosis prophylaxis. Repeat labs. Edie Dominguez MD [facility] # [id number]
[2017-05-15] MEDS: Levothyroxine 125 MCG TAB PO SCH (07:54)
[2017-05-15] MEDS: Insulin Reg-LOW-Coverage SC SCH ×4 (07:54→22:10)
[2017-05-15] MEDS: cefTRIAXone 1 gm 1 GM/100 ML BAG IVPB SCH (10:01)
[2017-05-15] MEDS: MethylPREDNISolone 40 mg Vial IVP SCH (10:01)
--- NOTE | 2017-05-15 16:05 | PN ---
PULMONARY PROGRESS NOTE DATE: REFERRING PHYSICIAN: Dr. Dominguez. SUBJECTIVE: She is lying in the bed, head at 45 degrees, has mild cough, not much shortness of breath. No chest pain, no nausea no vomiting, no diarrhea. No leg pain or leg swelling. PHYSICAL EXAMINATION GENERAL: No acute distress. VITAL SIGNS: Temperature is 98, heart rate 69, respiratory rate is 20, blood pressure 110/65, pulse ox on room air. HEENT: Moist mucous membranes. Crowded airway. NECK: Surgical scar healing well. No stridor. LUNGS: Fair airflow with no rhonchi. HEART: S1 and S2. ABDOMEN: Soft and nontender. No organomegaly. EXTREMITIES: There is no edema. NEUROLOGIC: Awake and alert. Follows simple commands. MEDICATION: She in on DuoNeb q. 6 hours, metformin 850 mg twice a day, insulin coverage, Lipitor 20 mg daily, Norvasc 5 mg daily, Pepcid 40 mg daily, Rocephin 1 g daily, Solu-Medrol 10 mg q. 12 hours, Synthroid 125 mcg and Zestril 10 mg daily. LABORATORY DATA: Reviewed, blood sugar is 122. IMPRESSION AND PLAN: Status post thyroidectomy. Her incision site has some fluid collection. Seroma work is assessed. Originally when admitted, had some stridor and shortness of breath, diabetes, hypertension, hypothyroidism, presently on inhaled bronchodilator, antibiotics. The patient was seen by general surgery. Clinically, I feel this is more like a seroma than abscess. We will taper off steroids, change antibiotics p.o. DISCHARGE PLAINING: The patient should be seeing her ENT next 2 to 3 days as an outpatient. Thank you and we will follow with you. Devika Quiñonez MD
--- NOTE | 2017-05-15 17:09 | US ---
PROCEDURE: THYROID ULTRASOUND EXAMINATION: HISTORY: neck mass s/p thyroidectomy COMPARISON: NECK MRI 05/14/2017. TECHNIQUE: Transverse and sagittal ultrasonography of the thyroid bed was performed. FINDINGS: No definite cyst or solid mass is seen throughout the thyroid bed with postoperative changes mainly appreciated. No definite suspicious fluid collection. No definitive mass identified at this time. IMPRESSION: No discrete mass or prominent fluid collections seen in the thyroid bed status post total thyroidectomy. Overall pattern agrees with prior neck MRI 05/13/2017.
--- NOTE | 2017-05-15 19:28 | PN ---
ENDO-FOLLOWUP NOTE Room 374. SUBJECTIVE: This is a 51-year-old female with recent admission for acute exacerbation of COPD and asthmatic bronchitis and started on IV steroid therapy and this has been switched over now to oral steroids, use predispose given as 20 mg once daily as noted. She also had recent thyroidectomy and supervening surgical hypothyroidism and started on a higher dose of levothyroxine replacement therapy, which she is tolerating fairly well. Her glycemic levels are fluctuating as expected, but is also improving accordingly with glucose values today ranging from 104 to 122 and 145 mg/dL. Her latest chemistries include a BUN of 14, sodium 137, potassium 4.9, chloride 101, CO2 26, glucose 126 and creatinine of 1.1. Thyroid studies showed a T4 of 6.5 with a TSH of 6.79, free T4 of 0.73. So at this time, we will continue to modify levothyroxine at a dose o f 125 mcg once daily before breakfast as ordered. She will continue the low dose correction scale using regular insulin as given. We will obtain serial chemistries and supplement accordingly as needed and we will follow and advice accordingly Zulema Flowers MD
--- NOTE | 2017-05-15 20:04 | PN ---
DATE: 05/15/2017 SUBJECTIVE: The patient is 51-year-old female. The patient was seen and examined at the bedside, lying down comfortably relaxing. No nausea, vomiting, or diarrhea. No hematuria, no hematochezia. Neck swelling is getting better. No headache. No dizziness. No constipation. PHYSICAL EXAMINATION: VITAL SIGNS: Temperature of 98, heart rate of 80 , respiratory 20 and blood pressure of 110/60. HEENT: Head is normocephalic and atraumatic. Eyes: PERRLA. Extraocular movements intact. Conjunctivae are clear. Nose is patent. Mucous membranes moist. NECK: Supple. No carotid bruit or thyromegaly. CHEST: Bilaterally symmetrical. HEART: S1 and S2 positive. LUNGS: Clear to auscultation. ABDOMEN: Soft. Bowel sounds are present. No organomegaly. EXTREMITIES: No edema and no cyanosis. NEUROLOGIC: The patient is awake and alert. Moving all four extremities. No focal deficits. LABORATORY DATA: We do not have recent lab today, but I reviewed old labs. Blood sugar is 132. MEDICATIONS: DuoNeb, metformin, insulin coverage, Lipitor, Norvasc, Pepcid, Rocephin, Solu-Medrol tapering doses, Synthroid, and Zestril. ASSESSMENT AND PLAN: Ms. Octaviano Ortiz is a 51 years old female status post thyroidectomy in [facility], incision site had some fluid collection. The patient is on for CAT scan, MRI ultrasound. Surgical consult called with Dr. Forbes and Dr. Hopper was covering according to them, the patient do not need surgery, need a follow up as outpatient. The patient's stridor and shortness of breath is getting better. Diabetes mellitus, hypertension, hypothyroidism. Continue inhaled bronchodilators and antibiotics. Reviewed by Dr. Quiñonze. discussion done with patient, out of bed, physical therapy, GI and DVT prophylaxis, and repeat labs. We will follow up. Edie Dominguez MD [facility]
[2017-05-15] MEDS: Cefpodoxime (Vantin) 200 mg Tab PO SCH (21:31)
[2017-05-16] MEDS: Albuterol-Ipratrop 3 mg / 0.5 (3 ml) UD IH SCH ×3 (01:16→14:12)
[2017-05-16 07:07] LABS: HEMOGLOBIN 9.2 gm/dL (12.0-16.0); MEAN CELL VOLUME 76.4 fL (80.0-105.0); MEAN CORPUSCULAR HEMOGLOBIN 23.8 pg (25.0-35.0); MEAN CORPUSCULAR HGB CONC 31.2 g/dl (31.0-37.0); MEAN PLATELET VOLUME 10.6 fl (7.0-11.0); RBC 3.86 10^6/uL (3.5-6.1); RED CELL DISTRIBUTION WIDTH 16.2 % (11.5-14.5); WHITE BLOOD COUNT 14.4 10^3/ul (4.5-11.0)
[2017-05-16 07:08] LABS: BLOOD UREA NITROGEN 21 mg/dL (7-21); CALCIUM 8.8 mg/dL (8.4-10.5); GFR AFRICAN-AMERICAN > 60; GFR NON-AFRICAN AMERICAN 58
[2017-05-16] MEDS: Levothyroxine 125 MCG TAB PO SCH (07:46)
[2017-05-16] MEDS: Insulin Reg-LOW-Coverage SC SCH (07:47)
--- NOTE | 2017-05-16 08:37 | CP.PCM.PN ---
Subjective - Date & Time of Evaluation Date of Evaluation: 05/16/17 Time of Evaluation: 08:33 - Subjective Subjective: General Surgery - Dr. Hopper Pt S&E> NAEO. PT states her SOB and neck discomfort are improved. Her pain complaint at this point is her hoarse voice, thought she states this is slightly improved. No N/B, F/C, SOb/Cp Objective - Vital Signs/Intake and Output Vital Signs (last 24 hours): Temp Pulse Resp BP Pulse Ox 98.9 F 92 H 20 130/78 97 05/15/17 17:04 05/15/17 18:00 05/15/17 17:04 05/15/17 17:04 05/15/17 17:04 Intake and Output: 05/16/17 05/16/17 06:59 18:59 Intake Total 540 Balance 540 - Medications Medications: Current Medications Albuterol/Ipratropium (Duoneb 3 Mg/0.5 Mg (3 Ml) Ud) 3 ml IH [id number] [facility] Last Admin: 05/16/17 07:56 Dose: 3 ml Amlodipine Besylate (Norvasc) 5 mg PO DAILY [facility] Last Admin: 05/15/17 10:01 Dose: 5 mg Atorvastatin Calcium (Lipitor) 20 mg PO DIN [facility] Last Admin: 05/15/17 17:17 Dose: 20 mg Cefpodoxime Proxetil (Vantin) 200 mg PO Q12 [facility] PRN Reason: Protocol Last Admin: 05/15/17 21:31 Dose: 200 mg Famotidine (Pepcid) 40 mg PO HS [facility] Last Admin: 05/15/17 21:30 Dose: 40 mg Insulin Human Regular (Humulin R Low) 0 units SC ACHS [facility] PRN Reason: Protocol Last Admin: 05/16/17 07:47 Dose: Not Given Levothyroxine Sodium (Synthroid) 125 mcg PO ACB [facility] Last Admin: 05/16/17 07:46 Dose: 125 mcg Lisinopril (Zestril) 10 mg PO DAILY [facility] Last Admin: 05/15/17 10:01 Dose: 10 mg Metformin HCl (Glucophage) 850 mg PO BID [facility] Last Admin: 05/15/17 17:17 Dose: 850 mg Prednisone (Prednisone Tab) 20 mg PO DAILY [facility] - Labs Labs: 05/16/17 06:00 05/16/17 06:00 - Constitutional Appears: No Acute Distress - Head Exam Head Exam: ATRAUMATIC, NORMAL INSPECTION, NORMOCEPHALIC - Neck Exam Additional comments: inciison c/d/i with dermabond s/p thyroidectomy palpable soft tissue swellling but no discrete abscess or fluid collection, no erythema, warmth or signs of infection - Respiratory Exam Respiratory Exam: NORMAL BREATHING PATTERN. absent: Respiratory Distress - Neurological Exam Neurological Exam: Alert, Oriented x3 - Psychiatric Exam Psychiatric exam: Normal Affect, Normal Mood - Skin Skin Exam: Dry, Intact Assessment and Plan - Assessment and Plan (Free Text) Assessment: 51F s/p thyroidectomy and post-op hematoma evacuation at [facility], who presented to [facility] with hoarse voice and neck swelling Plan: U/S reviewed - appears to be normal post op soft tissue swelling with no drainable fluid collection or abscess Continue care as per medical team ENT evaluation and office F/U No surgical intervention, surgery will sign off, re-consult PETER Edwards PGY3
[2017-05-16 08:59] VITALS: RESP 18; TEMP 98.1; O2SAT 100
[2017-05-16] MEDS: Cefpodoxime (Vantin) 200 mg Tab PO SCH (09:53)
[2017-05-16 09:54] VITALS: BP 113/65; PULSE 91
--- NOTE | 2017-05-16 13:54 | PN ---
DATE: ENDO FOLLOWUP NOTE ROOM: 374. SUBJECTIVE: This is a 51-year-old female presenting here with acute exacerbation of asthmatic bronchitis and COPD and started on IV steroid therapy and has seems then improved clinically and hemodynamically and has been switched over to oral steroids at this time. She also has overt hypothyroidism related to a recent thyroidectomy and those adjustments were undertaken there of. Her latest chemistries showed BUN of 21, sodium 136, potassium 4.4, chloride 100, CO2 28, glucose 80 and creatinine 1.0. Her glucose levels have ranged from 93-145 mg/dL. Her last thyroid studies showed a T4 of 6.5 with a TSH of 6.79 and free T4 of 0.73. So at this time, we will continue the same levothyroxine given us 125 mcg daily before breakfast as ordered. She would obtain serial thyroid studies and dose accordingly to optimize metabolic control. She will follow with her medical doctor for outpatient diabetic medical management and also with armament mechanic for endocrine followup following the recent thyroidectomy. Zulema Flowers MD
--- NOTE | 2017-05-16 22:38 | PN ---
DATE: 05/16/2017 PULMONARY PROGRESS NOTE REFERRING PHYSICIAN: Dr. Dominguez. SUBJECTIVE: She is sitting at the side of the bed. No headache. No rhinitis. No nausea, no vomiting, and no diarrhea. No leg pain or leg swelling. PHYSICAL EXAMINATION: GENERAL: No acute distress. VITAL SIGNS: Temperature is 98, heart rate is 91, respiratory rate is 20, blood pressure 113/65, pulse ox 100% on room air. HEENT: Moist mucous membranes. Crowded airway. NECK: Incision site is healing well. LUNGS: Fair airflow with rhonchi. HEART: S1 and S2. ABDOMEN: Soft, nontender. No organomegaly. EXTREMITIES: There is no edema. NEUROLOGIC: Awake and alert. Follows simple commands. MEDICATIONS: She is on DuoNeb q.6 hours, metformin 850 mg twice a day, insulin coverage, Lipitor 20 mg daily, Norvasc 5 mg daily, Pepcid 40 mg daily, prednisone 20 mg daily, Synthroid 125 200 mg twice a day, Zestril 10 mg daily. LABORATORY DATA: Shows hemoglobin 9.2, hematocrit 29.9, WBC 14.4, platelet is 230. Sodium 136, potassium 4.4, chloride 100, bicarbonate 28, BUN 21, creatinine 1.0, glucose 80, calcium is 8.8. Soft tissue ultrasound shows postop changes in the thyroid gland area. IMPRESSION AND PLAN: Status post thyroidectomy, had some fluid collection in the incision site. Admitted with shortness of breath and stridor, given IV steroids and antibiotics, responded well. Also have diabetes, hypertension, hypothyroid. The patient was seen by endocrinology, also seen by surgery, being discharged home on p.o. antibiotics, p.o. prednisone. Continue rest of the medications. The patient advised to see her primary surgeon for postoperative followup. The patient expressed understanding with the plan of medication and follow up with the primary surgeon. Thank you, and we will follow with you. Devika Quiñonez MD
--- NOTE | 2017-05-17 00:40 | CP.PCM.DIS ---
Provider - Provider Date of Admission: 05/12/17 09:30 dictating discharge summery for 05/16/17 51 F PMH of DM, HTN, HLD hyperthyroidism s/p thyroidectomy at [facility] currently on levothyroxine presented to ED for SOB/throat swelling. Pt had surgery on the 05/01/17. Pt complaining that voice is not back to normal and has difficulty with deep breathes. Surgeon was Dr. Carrera and does not feel comfortable going back to the surgeon. During the procedure she was taken back twice on the same day as the pressure claims "pressure release". Patient currenlty denies any pain. Attending physician: Edie Dominguez MD Primary care physician: Adry Arriola Time Spent in preparation of Discharge (in minutes): 60 Diagnosis - Discharge Diagnosis (1) H/O thyroidectomy Status: Acute (2) Shortness of breath Status: Acute Hospital Course - Lab Results Lab Results: Most Recent Lab Values WBC 14.4 10^3/ul (4.5-11.0) H D 05/16/17 06:00 RBC 3.86 10^6/uL (3.5-6.1) 05/16/17 06:00 Hgb 9.2 gm/dL (12.0-16.0) L 05/16/17 06:00 Hct 29.5 % (36.0-48.0) L 05/16/17 06:00 MCV 76.4 fL (80.0-105.0) L 05/16/17 06:00 MCH 23.8 pg (25.0-35.0) L 05/16/17 06:00 MCHC 31.2 g/dl (31.0-37.0) 05/16/17 06:00 RDW 16.2 % (11.5-14.5) H 05/16/17 06:00 Plt Count 230 10^3/uL (120.0-450.0) 05/16/17 06:00 MPV 10.6 fl (7.0-11.0) 05/16/17 06:00 Gran % 61.1 % (50.0-68.0) 05/12/17 07:35 Lymph % (Auto) 31.0 % (22.0-35.0) 05/12/17 07:35 [place] % (Auto) 5.6 % (1.0-6.0) 05/12/17 07:35 Eos % (Auto) 1.9 % (1.5-5.0) 05/12/17 07:35 Baso % (Auto) 0.4 % (0.0-3.0) 05/12/17 07:35 Gran # 4.47 (1.4-6.5) 05/12/17 07:35 Lymph # 2.3 (1.2-3.4) 05/12/17 07:35 [place] # 0.4 (0.1-0.6) 05/12/17 07:35 Eos # 0.1 (0.0-0.7) 05/12/17 07:35 Baso # 0.03 K/mm3 (0.0-2.0) 05/12/17 07:35 Sodium 136 mmol/L (132-148) 05/16/17 06:00 Potassium 4.4 mmol/L (3.6-5.0) 05/16/17 06:00 Chloride 100 mmol/L (98-107) 05/16/17 06:00 Carbon Dioxide 28 mmol/L (21-33) 05/16/17 06:00 Anion Gap 12 (10-20) 05/16/17 06:00 BUN 21 mg/dL (7-21) 05/16/17 06:00 Creatinine 1.0 mg/dL (0.5-1.4) 05/16/17 06:00 Est GFR ( Amer) > 60 05/16/17 06:00 Est GFR (Non-Af Amer) 58 05/16/17 06:00 POC Glucose (mg/dL) 118 mg/dL (65-110) H 05/16/17 16:35 Random Glucose 80 mg/dL (70-110) 05/16/17 06:00 Hemoglobin A1c 6.7 % (4.2-6.5) H 05/13/17 06:00 Calcium 8.8 mg/dL (8.4-10.5) 05/16/17 06:00 Magnesium 2.0 mg/dL (1.7-2.2) 05/12/17 07:35 Total Bilirubin 0.2 mg/dL (0.2-1.3) 05/13/17 06:00 AST 24 U/L (15-39) 05/13/17 06:00 ALT 23 U/L (7-56) 05/13/17 06:00 Alkaline Phosphatase 73 U/L (38-133) 05/13/17 06:00 Lactate Dehydrogenase 448 U/L (333-699) 05/12/17 07:35 Total Creatine Kinase 147 U/L (35-230) 05/12/17 07:35 Troponin I < 0.01 ng/mL 05/12/17 07:35 NT-Pro-B Natriuret Pep 19.9 pg/mL (0-450) 05/12/17 08:12 Total Protein 7.7 g/dL (5.8-8.3) 05/13/17 06:00 Albumin 4.1 g/dL (3.0-4.8) 05/13/17 06:00 Globulin 3.7 gm/dL 05/13/17 06:00 Albumin/Globulin Ratio 1.1 (1.1-1.8) 05/13/17 06:00 Free T4 0.73 ng/dL (0.78-2.19) L 05/13/17 06:00 Thyroxine (T4) 6.5 ug/dL (5.5-11.0) 05/13/17 06:00 TSH 3rd Generation 6.79 mIU/mL (0.46-4.68) H 05/13/17 06:00 Thyroperoxidase Ab <1 IU/mL (<9) 05/13/17 06:00 Thyroglobulin Antibody <1 IU/mL (< OR = 1) 05/13/17 06:00 - Hospital Course Hospital Course: 51 F PMH of DM, HTN, HLD hyperthyroidism s/p thyroidectomy at [facility] currently on levothyroxine presented to ED for SOB/throat swelling. Pt had surgery on the 05/01/17. Pt complaining that voice is not back to normal and has difficulty with deep breathes. Surgeon was Dr. Carrera and does not feel comfortable going back to the surgeon. During the procedure she was taken back twice on the same day as the pressure claims "pressure release". Patient currenlty denies any pain. 51F hypothyroidsm s/p thyroidectomy at [facility], with periincsional fluid Plan: c/w medical management recommend f/u with primary surgeon. CT scan shows 4.1cm fluid colletion air dissecting deep to the right side strap muslces. abscess vs seroma - recommend Pt f/u with surgeon at Medical center Discharge Exam - Head Exam Head Exam: ATRAUMATIC, NORMAL INSPECTION, NORMOCEPHALIC - Eye Exam Eye Exam: EOMI, Normal appearance, PERRL Pupil Exam: NORMAL ACCOMODATION, PERRL - GI/Abdominal Exam GI & Abdominal Exam: Normal Bowel Sounds - Rectal Exam Rectal Exam: NORMAL INSPECTION - Exam Exam: Circumcision, NORMAL INSPECTION External exam: NORMAL EXTERNAL EXAM Speculum exam: NORMAL SPECULUM EXAM Bimanual exam: NORMAL BIMANUAL EXAM - Neurological Exam Neurological exam: Alert, CN II-XII Intact, Normal Gait, Oriented x3, Reflexes Normal - Psychiatric Exam Psychiatric exam: Normal Affect, Normal Mood - Skin Skin Exam: Dry, Intact, Normal Color, Warm Discharge Plan - Discharge Medications Prescriptions: Famotidine [Pepcid] 40 mg PO HS #30 tab predniSONE [predniSONE Tab] 10 mg PO DAILY #3 tab predniSONE [predniSONE Tab] 20 mg PO DAILY #3 tab Levothyroxine [Synthroid] 125 mcg PO ACB #30 tab Cefpodoxime [Vantin] 200 mg PO Q12 #10 tab - Follow Up Plan Condition: STABLE Disposition: HOME/ ROUTINE Instructions: Dyspnea (GEN) Additional Instructions: If Shortness of breath persist or gets worst please called primary MD or go to the nearest ER. Please follow up with Dr. Dominguez on Thursday05/19/17 at 11:00 am Phone [phone] Referrals: Adry Arriola [Primary Care Provider] -
== END 2017-05-16 18:32 | disposition home or self-care (01) | DRG 88 ==
LOC: ED 07:05 → ERH 09:30 → 3RSO 11:19
PROVIDERS: ADMIT Internal Medicine; ATTEND Internal Medicine
DX: J44.1 Chronic obstructive pulmonary disease with (acute) exacerbation (principal); J45.901 Unspecified asthma with (acute) exacerbation; I10 Essential (primary) hypertension; E11.9 Type 2 diabetes mellitus without complications; D64.9 Anemia, unspecified; E04.9 Nontoxic goiter, unspecified; E89.0 Postprocedural hypothyroidism; E78.5 Hyperlipidemia, unspecified; E78.00 Pure hypercholesterolemia, unspecified; Z79.899 Other long term (current) drug therapy; Z90.49 Acquired absence of other specified parts of digestive tract; Z79.84 Long term (current) use of oral hypoglycemic drugs; R40.2412 Glasgow coma scale score 13-15, at arrival to emergency department

== ENCOUNTER 2018-01-03 17:13 | Emergency (ER) | payer MEDICAID, OTHER ==
[2018-01-03 17:53] VITALS: BMI 31.8
[2018-01-03] MEDS ORDERED: Sodium Chloride 0.9% 1,000 ML IV STA (18:11)
[2018-01-03 19:05] LABS: BASO # 0.02 K/mm3 (0.0-2.0); BASO % 0.5 % (0.0-3.0); EOS # 0.1 (0.0-0.7); EOS % 1.2 % (1.5-5.0); GRAN # 2.48 (1.4-6.5); GRAN % 58.6 % (50.0-68.0); LYMPH # 1.2 (1.2-3.4); LYMPH % 28.4 % (22.0-35.0); MEAN CORPUSCULAR HEMOGLOBIN 23.2 pg (25.0-35.0); MEAN CORPUSCULAR HGB CONC 31.8 g/dl (31.0-37.0); MEAN PLATELET VOLUME 10.6 fl (7.0-11.0); MONO # 0.5 (0.1-0.6); MONO % 11.3 % (1.0-6.0); RBC 4.74 10^6/uL (3.5-6.1); RED CELL DISTRIBUTION WIDTH 14.8 % (11.5-14.5); WHITE BLOOD COUNT 4.2 10^3/ul (4.5-11.0)
[2018-01-03 19:16] LABS: ALB/GLOB RATIO 1.2 (1.1-1.8); ALBUMIN 4.2 g/dL (3.0-4.8); ALT/SGPT 37 U/L (7-56); AST/SGOT 40 U/L (14-36); BLOOD UREA NITROGEN 9 mg/dL (7-21); CALCIUM 9.8 mg/dL (8.4-10.5); GFR AFRICAN-AMERICAN > 60; GFR NON-AFRICAN AMERICAN > 60
--- NOTE | 2018-01-03 19:31 | ED PDOC ---
Arrival/HPI - General Chief Complaint: Finger,Hand,&Wrist Time Seen by Provider: 01/03/18 17:17 Historian: Patient - History of Present Illness Narrative History of Present Illness (Text): 01/03/18 19:25 52yr old female with hx of total thyroidectomy presents today with flu like symptoms since yesterday. pt states prior to arrival she developed muscle cramps in both arms bilaterally. pt states she became nervous and called the ambulance. pt states symptoms have resolved. pt states for the past 2 days she has been having cough, nasal congestion and subjective fevers. no medications have been taken at home. pt denies cp or sob. no dizziness or weakness. no other complaints. Time/Duration: Prior to Arrival Symptom Onset: Gradual Past Medical History - Provider Review Nursing Documentation Reviewed: Yes - Travel History Have you recently traveled outside [place] w/in the past 3 mons?: No - Infectious Disease Hx of Infectious Diseases: None - Reproductive Menopause: No - Cardiac Hx Hypertension: Yes - Pulmonary Hx Respiratory Disorders: No - Neurological Hx Neurological Disorder: No - Endocrine/Metabolic Hx Diabetes Mellitus Type 1: Yes - Integumentary Other/Comment: transverse scar base of neck - Musculoskeletal/Rheumatological Hx Falls: No - Gastrointestinal Other/Comment: had thyroidectomy 05/01/17 was vomiting and unable to eat post op now eating oranges and applesause but having watery stools after eating - Genitourinary/Gynecological Hx Genitourinary Disorders: Yes (dx with fibroids 5 yrs ago) Other/Comment: has menses 2x's a month normal flow as per pt - Psychiatric Hx Substance Use: No - Surgical History Hx Thyroidectomy: Yes (april 2017) - Anesthesia Hx Anesthesia: Yes Hx Anesthesia Reactions: No Hx Malignant Hyperthermia: No Family/Social History - Physician Review Nursing Documentation Reviewed: Yes Family/Social History: Unknown Family HX Smoking Status: Former Smoker Hx Alcohol Use: No Hx Substance Use: No Allergies/Home Meds Allergies/Adverse Reactions: Allergies No Known Allergies Allergy (Verified 07/29/17 21:16) Home Medications: Home Meds Medication Instructions Recorded Confirmed Lisinopril [Zestril] 10 mg PO DAILY 05/12/17 01/03/18 Simvastatin 40 mg PO DIN 05/12/17 01/03/18 amLODIPine [Norvasc] 5 mg PO DAILY 07/25/17 03/18/18 metFORMIN [glucOPHAGE] 850 mg PO BID 05/12/17 01/03/18 Review of Systems - Review of Systems Constitutional: Fevers. absent: Fatigue ENT: Sinus Congestion Respiratory: Cough. absent: SOB Cardiovascular: absent: Chest Pain, Palpitations Gastrointestinal: absent: Abdominal Pain, Nausea, Vomiting Genitourinary Female: absent: Dysuria Musculoskeletal: absent: Arthralgias Skin: absent: Rash Neurological: absent: Headache, Dizziness Psychiatric: absent: Anxiety, Depression Physical Exam Vital Signs Reviewed: Yes Vital Signs Temp Pulse Resp BP Pulse Ox 01/03/18 20:00 98.7 F 82 20 132/82 99 01/03/18 17:14 100.7 F H 102 H 18 132/78 100 Temperature: Febrile Blood Pressure: Normal Pulse: Tachycardic Respiratory Rate: Normal Appearance: Positive for: Well-Appearing, Non-Toxic, Comfortable Pain Distress: None Mental Status: Positive for: Alert and Oriented X 3 - Systems Exam Head: Present: Atraumatic Mouth: Present: Moist Mucous Membranes Neck: Present: Normal Range of Motion Respiratory/Chest: Present: Clear to Auscultation, Good Air Exchange. No: Respiratory Distress, Accessory Muscle Use Cardiovascular: Present: Regular Rate and Rhythm, Normal S1, S2. No: Murmurs Abdomen: No: Tenderness, Distention, Rebound, Guarding Back: Present: Normal Inspection Upper Extremity: Present: Normal Inspection, Normal ROM, NORMAL PULSES, Neurovascularly Intact, Capillary Refill < 2s. No: Edema, Tenderness, Swelling , Deformity Lower Extremity: Present: Normal ROM. No: Swelling Neurological: Present: GCS=15, Speech Normal Skin: Present: Warm, Dry, Normal Color. No: Rashes Psychiatric: Present: Alert, Oriented x 3 Medical Decision Making ED Course and Treatment: 01/03/18 19:32 Patient is nontoxic well-appearing. C/o flu-like symptoms. also with an episode of cramping of hands bilaterally that resolved. tylenol PO cbc; wnl cmp; wnl ast 40 magnesium; wnl rapid flu; + Motrin po Tamiflu po UA: wnl cxr; no infiltrate or effusion Patient reassessment: Pt feeling better; vitals stable. afebrile. ambulating with no distress. speaking in full sentences. discussed all results with patient. I advised follow up with primary care physician within the next 2 days. I advised increase fluids and return if symptoms worsen persist or if new symptoms develop Patient verbalizes understanding of discharge instructions and need for immediate followup. all aspects of this case were discussed the attending of record. IMPRESSION; Influenza Motrin one tablet every 6 hours as needed for pain Tamiflu: 1 capsule twice daily 5 days Increase fluids Followup with primary care physician the next 2 days Return if symptoms worsen persist or if new symptoms develop: Continued high fevers, dizziness, weakness, chest pain or shortness of breath vomiting/diarrhea , or if any other concerning symptoms develop - Lab Interpretations Lab Results: 01/03/18 18:50 01/03/18 18:50 Lab Results 01/03/18 19:15: Influenza Typ A,B (EIA) Pos for influenza a H 01/03/18 18:50: WBC 4.2 L D, RBC 4.74, Hgb 11.0 L, Hct 34.6 L, MCV 73.0 L, MCH 23.2 L, MCHC 31.8, RDW 14.8 H, Plt Count 202, MPV 10.6, Gran % 58.6, Lymph % ( Auto) 28.4, [place] % (Auto) 11.3 H, Eos % (Auto) 1.2 L, Baso % (Auto) 0.5, Gran # 2.48, Lymph # (Auto) 1.2, [place] # (Auto) 0.5, Eos # (Auto) 0.1, Baso # (Auto) 0.02 01/03/18 18:50: Sodium 138, Potassium 4.1, Chloride 101, Carbon Dioxide 25, Anion Gap 16, BUN 9, Creatinine 0.8, Est GFR ( Amer) > 60, Est GFR (Non- Af Amer) > 60, Random Glucose 136 H, Calcium 9.8, Magnesium 2.2, Total Bilirubin 0.1 L, AST 40 H D, ALT 37, Alkaline Phosphatase 73, Total Protein 7.8 , Albumin 4.2, Globulin 3.6, Albumin/Globulin Ratio 1.2 01/03/18 17:25: POC Glucose (mg/dL) 155 H 01/03/18 08:30: Urine Color Yellow, Urine Appearance Clear, Urine pH 6.0, Ur Specific [place] 1.010, Urine Protein Negative, Urine Glucose (UA) Negative, Urine Ketones Negative, Urine Blood Negative, Urine Nitrate Negative, Urine Bilirubin Negative, Urine Urobilinogen 0.2, Ur Leukocyte Esterase Negative - RAD Interpretation Radiology Orders: 01/03/18 18:10 CHEST TWO VIEWS (PA/LAT) [RAD] Stat - Medication Orders Current Medication Orders: Discontinued Medications Acetaminophen (Tylenol 325mg Tab) 975 mg PO STAT STA Stop: 01/03/18 18:11 Last Admin: 01/03/18 18:58 Dose: 975 mg MAR Pain/Vitals Document 01/03/18 18:58 TA (Rec: 01/03/18 18:59 TA [id number]) Pain Reassessment Is This A Pain ReAssessment? No Sleep Is patient sleeping during reassessment? No Presence of Pain Presence of Pain Yes Pain Scale Used Pain Scale Used Numeric Location Pain Location Body Site Hand Description Cramping Scale Used Numeric Sodium Chloride (Sodium Chloride 0.9%) 1,000 mls @ 999 mls/hr IV .Q1H1M STA Stop: 01/03/18 19:11 Last Admin: 01/03/18 18:54 Dose: 999 mls/hr eMAR Start Stop Document 01/03/18 18:54 TA (Rec: 01/03/18 18:54 TA [id number]) Intravenous Solution Start Date 01/03/18 Start Time 18:54 Ibuprofen (Motrin Tab) 600 mg PO STAT STA Stop: 01/03/18 20:25 Last Admin: 01/03/18 20:32 Dose: 600 mg MAR Pain/Vitals Document 01/03/18 20:32 TA (Rec: 01/03/18 20:32 TA [id number]) Pain Reassessment Is This A Pain ReAssessment? Yes Sleep Is patient sleeping during reassessment? No Presence of Pain Presence of Pain No Pain Scale Used Pain Scale Used Numeric Oseltamivir Phosphate (Tamiflu Cap) 75 mg PO STAT STA PRN Reason: Protocol Stop: 01/03/18 20:25 Last Admin: 01/03/18 20:32 Dose: 75 mg Disposition/Present on Arrival - Present on Arrival Any Indicators Present on Arrival: No History of DVT/PE: No History of Uncontrolled Diabetes: No Urinary Catheter: No History of Decub. Ulcer: No History Surgical Site Infection Following: None - Disposition Have Diagnosis and Disposition been Completed?: Yes Diagnosis: Influenza, Cramping of hands Disposition: HOME/ ROUTINE Disposition Time: 20:27 Patient Plan: Discharge Patient Problems: Current Active Problems Problem Status Onset Cramping of hands Acute Influenza Acute Condition: GOOD Discharge Instructions (ExitCare): Flu, Adult (DC) Additional Instructions: Motrin one tablet every 6 hours as needed for pain Tamiflu: 1 capsule twice daily 5 days Increase fluids Followup with primary care physician the next 2 days Return if symptoms worsen persist or if new symptoms develop: Continued high fevers, dizziness, weakness, chest pain or shortness of breath vomiting/diarrhea , or if any other concerning symptoms develop Prescriptions: Ibuprofen [Motrin] 600 mg PO Q6H PRN #20 tab PRN Reason: pain/fever reduction Oseltamivir [Tamiflu] 75 mg PO BID #10 cap Referrals: Adry Arriola [Primary Care Provider] - Follow up with primary Forms: [facility] (K[place]akh), WORK NOTE
[2018-01-03 20:35] VITALS: BP 132/82; PULSE 82; RESP 20; TEMP 98.7; O2SAT 99
[2018-01-03 20:56] LABS: URINE BILIRUBIN NEGATIVE (NEGATIVE); URINE BLOOD NEGATIVE (NEGATIVE); URINE GLUCOSE (UA) NEGATIVE (NEGATIVE); URINE LEUKOCYTE ESTERASE NEGATIVE Leu/uL (NEGATIVE); URINE PROTEIN NEGATIVE mg/dL (<30 mg/dL); URINE UROBILINOGEN 0.2 E.U./dL (<1 E.U./dL)
[2018-01-03 20:57] LABS: URINE APPEARANCE CLEAR (CLEAR); URINE COLOR YELLOW (YELLOW)
--- NOTE | 2018-01-04 09:24 | RAD ---
HISTORY: cough/fever COMPARISON: 05/12/2017 TECHNIQUE: Chest PA and lateral FINDINGS: LUNGS: No active pulmonary disease. PLEURA: No significant pleural effusion identified. No pneumothorax apparent. CARDIOVASCULAR: Normal. OSSEOUS STRUCTURES: No significant abnormalities. VISUALIZED UPPER ABDOMEN: Normal. OTHER FINDINGS: None. IMPRESSION: No active disease.
== END 2018-01-03 21:05 | disposition home or self-care (01) ==
LOC: ED 17:13
DX: J11.1 Influenza due to unidentified influenza virus with other respiratory manifestations (principal); R25.2 Cramp and spasm; I10 Essential (primary) hypertension; Z87.891 Personal history of nicotine dependence
CPT/HCPCS: 71046; 80053; 81003; 82948; 83735; 85025; 87804; 99284; J7040

== ENCOUNTER 2018-02-08 19:12 | Observation (INO) | payer MEDICAID ==
[2018-02-08 19:15] VITALS: BMI 33.6
[2018-02-08 19:33] VITALS: RESP 18
[2018-02-08 20:05] LABS: BASO # 0.01 K/mm3 (0.0-2.0); BASO % 0.1 % (0.0-3.0); EOS # 0.2 (0.0-0.7); EOS % 2.5 % (1.5-5.0); GRAN # 2.92 (1.4-6.5); GRAN % 41.2 % (50.0-68.0); HEMOGLOBIN 11.6 g/dL (12.0-16.0); LYMPH # 3.5 (1.2-3.4); LYMPH % 48.7 % (22.0-35.0); MEAN CORPUSCULAR HEMOGLOBIN 23.2 pg (25.0-35.0); MEAN CORPUSCULAR HGB CONC 31.8 g/dl (31.0-37.0); MEAN PLATELET VOLUME 11.2 fl (7.0-11.0); MONO # 0.5 (0.1-0.6); MONO % 7.5 % (1.0-6.0); RED CELL DISTRIBUTION WIDTH 14.3 % (11.5-14.5); WHITE BLOOD COUNT 7.1 10^3/ul (4.5-11.0)
[2018-02-08 20:14] LABS: ALB/GLOB RATIO 1.2 (1.1-1.8); ALBUMIN 4.3 g/dL (3.0-4.8); ALT/SGPT 33 U/L (7-56); AST/SGOT 30 U/L (14-36); BLOOD UREA NITROGEN 13 mg/dL (7-21); GFR AFRICAN-AMERICAN > 60; GFR NON-AFRICAN AMERICAN > 60
[2018-02-08 20:25] LABS: TROPONIN I < 0.01 ng/mL
--- NOTE | 2018-02-08 20:41 | ED PDOC ---
Arrival/HPI <Rory Ponce - Last Filed: 02/08/18 23:08> - General Historian: Patient <Sanaz Max - Last Filed: 02/08/18 23:46> - General Chief Complaint: Chest Pain Time Seen by Provider: 02/08/18 19:17 - History of Present Illness Narrative History of Present Illness (Text): 02/08/18 20:43 52yr old female with hx of DM presents today with chest pain. pt states she has been having intermittent left sided chest pain x 3 days. pt states that the pain feels like a pressure sensation along the left side of the chest. pt denies shortness of breath. pt denies calf pain. pt c/o nausea. no vomiting/ diarrhea. pt states she was at her PMD office and the chest pain returned so the patient was sent into the ER for evaluation. pt states she is supposed to be taking ASA daily but doesnt. (Sanaz Max) Past Medical History - Provider Review Nursing Documentation Reviewed: Yes - Travel History Have you recently traveled outside [place] w/in the past 3 mons?: No - Infectious Disease Hx of Infectious Diseases: None - Reproductive Menopause: Yes - Cardiac Hx Hypertension: Yes - Pulmonary Hx Respiratory Disorders: No - Neurological Hx Neurological Disorder: No - Endocrine/Metabolic Hx Diabetes Mellitus Type 1: Yes - Integumentary Other/Comment: transverse scar base of neck - Musculoskeletal/Rheumatological Hx Falls: No - Gastrointestinal Other/Comment: had thyroidectomy 05/01/17 was vomiting and unable to eat post op now eating oranges and applesause but having watery stools after eating - Genitourinary/Gynecological Hx Genitourinary Disorders: Yes (dx with fibroids 5 yrs ago) Other/Comment: has menses 2x's a month normal flow as per pt - Psychiatric Hx Substance Use: No - Surgical History Hx Thyroidectomy: Yes (april 2017) - Anesthesia Hx Anesthesia: Yes Hx Anesthesia Reactions: No Hx Malignant Hyperthermia: No <Sanaz Max - Last Filed: 02/08/18 23:46> Family/Social History - Physician Review Nursing Documentation Reviewed: Yes Family/Social History: Unknown Family HX Smoking Status: Former Smoker Hx Alcohol Use: No Hx Substance Use: No <Sanaz Max - Last Filed: 02/08/18 23:46> Allergies/Home Meds <Rory Ponce - Last Filed: 02/08/18 23:08> <Sanaz Max - Last Filed: 02/08/18 23:46> Allergies/Adverse Reactions: Allergies No Known Allergies Allergy (Verified 07/29/17 21:16) Home Medications: Home Meds Medication Instructions Recorded Confirmed Lisinopril [Zestril] 10 mg PO DAILY 05/12/17 01/03/18 Simvastatin 40 mg PO DIN 05/12/17 01/03/18 amLODIPine [Norvasc] 5 mg PO DAILY 05/12/17 01/03/18 metFORMIN [glucOPHAGE] 850 mg PO BID 05/12/17 01/03/18 Review of Systems - Review of Systems Constitutional: absent: Fatigue, Fevers Respiratory: absent: SOB, Cough Cardiovascular: Chest Pain. absent: Palpitations Gastrointestinal: Nausea. absent: Abdominal Pain, Constipation, Diarrhea, Vomiting Genitourinary Female: absent: Dysuria Musculoskeletal: absent: Arthralgias Skin: absent: Rash, Pruritis Neurological: absent: Headache, Dizziness Psychiatric: absent: Anxiety, Depression, Suicidal Ideation <Sanaz Max - Last Filed: 02/08/18 23:46> Physical Exam Vital Signs Reviewed: Yes Temperature: Afebrile Blood Pressure: Normal Pulse: Regular Respiratory Rate: Normal Appearance: Positive for: Well-Appearing, Non-Toxic, Comfortable Pain Distress: None Mental Status: Positive for: Alert and Oriented X 3 - Systems Exam Head: Present: Atraumatic Mouth: Present: Moist Mucous Membranes Neck: Present: Normal Range of Motion Respiratory/Chest: Present: Clear to Auscultation, Good Air Exchange. No: Respiratory Distress, Accessory Muscle Use Cardiovascular: Present: Regular Rate and Rhythm, Normal S1, S2. No: Murmurs Abdomen: No: Tenderness, Distention, Peritoneal Signs, Rebound, Guarding Back: Present: Normal Inspection. No: CVA Tenderness, Midline Tenderness, Paraspinal Tenderness Upper Extremity: Present: Normal ROM Lower Extremity: Present: Normal Inspection. No: CALF TENDERNESS Neurological: Present: GCS=15, Speech Normal Skin: Present: Warm, Dry, Normal Color. No: Rashes Psychiatric: Present: Alert, Oriented x 3 <Sanaz Max - Last Filed: 02/08/18 23:46> Vital Signs Temp Pulse Resp BP Pulse Ox 02/08/18 19:33 97.7 F 85 18 127/82 100 Medical Decision Making <Rory Ponce - Last Filed: 02/08/18 23:08> Reassessment Condition: Re-examined, Improved <Sanaz aMx - Last Filed: 02/08/18 23:46> ED Course and Treatment: 02/08/18 20:51 pt with chest pain ; vitals stable cbc; wnl cmp; wnl trop: wnl ekg; normal sinus rhythm at 81 bpm normal axis no ST elevations QTC 434 cxr wnl asa given po pt reassessment; pt feeling better. case discussed with dr. carnes who has admitted the patient in the past; will give to hospitalist. case discussed with Dr. radha perez; will Admit observational status to Tele for chest pain r/o acs. pt with multiple risk factors for ACS. HTN, hyperlipidemia, DM. all aspects of this case were discussed the attending of record. impression; chest pain Admit observational status to tele; Dr. ding (Sanaz Max) - Lab Interpretations Lab Results: 02/08/18 19:56 02/08/18 19:56 Lab Results 02/08/18 21:10: Urine Color Yellow, Urine Appearance Clear, Urine pH 6.0, Ur Specific [place] 1.025, Urine Protein Negative, Urine Glucose (UA) Negative, Urine Ketones Negative, Urine Blood Negative, Urine Nitrate Negative, Urine Bilirubin Negative, Urine Urobilinogen 0.2, Ur Leukocyte Esterase Negative 02/08/18 19:56: Sodium 142, Potassium 4.4, Chloride 100, Carbon Dioxide 27, Anion Gap 20, BUN 13, Creatinine 0.7, Est GFR ( Amer) > 60, Est GFR (Non- Af Amer) > 60, Random Glucose 92, Calcium 9.0, Magnesium 2.0, Total Bilirubin 0.3, AST 30, ALT 33, Alkaline Phosphatase 80, Lactate Dehydrogenase 546, Total Creatine Kinase 143, Troponin I < 0.01, Total Protein 7.8, Albumin 4.3, Globulin 3.5, Albumin/Globulin Ratio 1.2 02/08/18 19:56: WBC 7.1 D, RBC 5.00, Hgb 11.6 L, Hct 36.5, MCV 73.0 L, MCH 23.2 L, MCHC 31.8, RDW 14.3, Plt Count 196, MPV 11.2 H, Gran % 41.2 L, Lymph % ( Auto) 48.7 H, [place] % (Auto) 7.5 H, Eos % (Auto) 2.5, Baso % (Auto) 0.1, Gran # 2.92, Lymph # (Auto) 3.5 H, [place] # (Auto) 0.5, Eos # (Auto) 0.2, Baso # (Auto) 0.01 - RAD Interpretation Radiology Orders: 02/08/18 19:42 CHEST PORTABLE [RAD] Stat - Medication Orders Current Medication Orders: Discontinued Medications Aspirin (Aspirin) 325 mg PO STAT STA Stop: 02/08/18 21:47 Last Admin: 02/08/18 21:55 Dose: 325 mg - 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 / has examined the patient and agrees with the treatment plan. <Rory Ponce - Last Filed: 02/08/18 23:08> Disposition/Present on Arrival <Rory Ponce - Last Filed: 02/08/18 23:08> - Present on Arrival Any Indicators Present on Arrival: No History of DVT/PE: No History of Uncontrolled Diabetes: No Urinary Catheter: No History of Decub. Ulcer: No History Surgical Site Infection Following: None - Disposition Have Diagnosis and Disposition been Completed?: Yes Disposition Time: 23:31 Patient Plan: Observation <Sanaz Max - Last Filed: 02/08/18 23:46> - Disposition Diagnosis: Chest pain Disposition: HOSPITALIZED Patient Problems: Current Active Problems Problem Status Onset Chest pain Acute Condition: FAIR
[2018-02-08 21:25] LABS: URINE BILIRUBIN NEGATIVE (NEGATIVE); URINE BLOOD NEGATIVE (NEGATIVE); URINE GLUCOSE (UA) NEGATIVE (NEGATIVE); URINE LEUKOCYTE ESTERASE NEGATIVE Leu/uL (NEGATIVE); URINE PROTEIN NEGATIVE mg/dL (<30 mg/dL); URINE UROBILINOGEN 0.2 E.U./dL (<1 E.U./dL)
[2018-02-08 21:36] LABS: URINE APPEARANCE CLEAR (CLEAR); URINE COLOR YELLOW (YELLOW)
--- NOTE | 2018-02-09 00:06 | CP.PCM.HP ---
History of Present Illness - History of Present Illness History of Present Illness: Patient is a 52 year old female with a PMHx of diabetes, HLD, Hyperthyroidism s/ p thyroidectomy (Now Hypothyroidism), GERD, and uterine fibroids who presents complaining of intermittent non-radiating, reproducible 5/10, dull chest pain x 3 days. Her chest pain is during exertion and not at rest. She attributed the pain to GERD at first and took Pepcid which was unsuccessful in relieving her symptoms. She cannot identify any relieving or exacerbating factors. ROS POSITIVES: Bloating, mild SOB, diarrhea, palpitations, mild SOB, dizziness, headache. NEGATIVES: Fever, chills, abdominal pain, nausea, vomiting, urinary symptoms. PMHx: As stated above PSHx: Thyroidectomy, Appendectomy Allergies: NKDA SocialHx: Denies tobacco and illicit drug use. Admits to occasional alcohol use. Hos: for throat pain. FamHx: Mother () - Heart Disease, Son (Sarcoidosis w/ Cardiomyopathy) Meds: Reviewed DEC PMD: Dr. Adry Arriola Present on Admission - Present on Admission Any Indicators Present on Admission: No Review of Systems - Review of Systems All systems: reviewed and no additional remarkable complaints except (As per HPI ) Review of Systems: As Per HPI Past Patient History - Infectious Disease Hx of Infectious Diseases: None - Past Social History Smoking Status: Former Smoker - CARDIAC Hx Hypertension: Yes - PULMONARY Hx Respiratory Disorders: No - NEUROLOGICAL Hx Neurological Disorder: No - ENDOCRINE/METABOLIC Hx Diabetes Mellitus Type 1: Yes - INTEGUMENTARY Other/Comment: transverse scar base of neck - MUSCULOSKELETAL/RHEUMATOLOGICAL Hx Falls: No - GASTROINTESTINAL Other/Comment: had thyroidectomy 05/01/17 was vomiting and unable to eat post op now eating oranges and applesause but having watery stools after eating - GENITOURINARY/GYNECOLOGICAL Hx Genitourinary Disorders: Yes (dx with fibroids 5 yrs ago) Other/Comment: has menses 2x's a month normal flow as per pt - PSYCHIATRIC Hx Substance Use: No - SURGICAL HISTORY Hx Thyroidectomy: Yes (april 2017) - ANESTHESIA Hx Anesthesia: Yes Hx Anesthesia Reactions: No Hx Malignant Hyperthermia: No Meds Allergies/Adverse Reactions: Allergies Allergy/AdvReac Type Severity Reaction Status Date / Time No Known Allergies Allergy Verified 07/29/17 21:16 Physical Exam - Constitutional Appears: Well, Non-toxic, No Acute Distress - Head Exam Head Exam: ATRAUMATIC, NORMAL INSPECTION, NORMOCEPHALIC - Eye Exam Eye Exam: EOMI, Normal appearance - ENT Exam ENT Exam: Mucous Membranes Moist - Neck Exam Neck exam: Negative for: Lymphadenopathy - Respiratory Exam Respiratory Exam: Clear to Auscultation Bilateral, NORMAL BREATHING PATTERN - Cardiovascular Exam Cardiovascular Exam: RRR, +S1, +S2. absent: JVD Additional comments: Chest Wall tender to palpation. - GI/Abdominal Exam GI & Abdominal Exam: Normal Bowel Sounds, Soft, Tenderness (Epigastric tenderness (Mild)) - Extremities Exam Extremities exam: Positive for: normal inspection. Negative for: pedal edema - Neurological Exam Neurological exam: Alert, Oriented x3 - Psychiatric Exam Psychiatric exam: Normal Affect, Normal Mood - Skin Skin Exam: Dry, Intact, Normal Color, Warm Results - Vital Signs Recent Vital Signs: Last Vital Signs Temp 97.7 F 02/08/18 19:33 Pulse 85 02/08/18 19:33 Resp 18 02/08/18 19:33 BP 127/82 02/08/18 19:33 Pulse Ox 100 02/08/18 19:33 - Labs Result Diagrams: 02/08/18 19:56 02/08/18 19:56 Assessment & Plan - Assessment and Plan (Free Text) Assessment: 52 year old female with a PMHx of diabetes, HLD, Hyperthyroidism s/p thyroidectomy (Now Hypothyroidism), GERD, and uterine fibroids admitted for evaluation and treatment of chest pain, r/O ACS. Plan: Chest Pain, R/O ACS DDx: GERD vs Costochondritis vs ACS (Less Likely) 1st Trop - NEGATIVE BNP - Within Normal Limits Serial Trop Serial EKG Cardio Consult (Dr. Rene) Home Ibuprofen PRN Tylenol PRN Protonix Hx of DM ISS (Regular) Hx of HLD Lipitor 20 HS Hx of HTN Home Lisinopril Home Norvasc. Hx of Thyroid Disease Levothyroxine Proph Protonix Patient discussed with Attending Ashish Estrada- PGY-1
[2018-02-09 04:43] LABS: FREE T4 1.99 ng/dL (0.78-2.19)
[2018-02-09 05:59] VITALS: TEMP 97.9; O2SAT 96
[2018-02-09] MEDS ORDERED: Pantoprazole 40 mg EC Tab PO SCH (06:00)
[2018-02-09] MEDS ORDERED: Levothyroxine 125 MCG TAB PO SCH (06:00)
[2018-02-09 07:18] LABS: BASO # 0.02 K/mm3 (0.0-2.0); BASO % 0.4 % (0.0-3.0); EOS # 0.1 (0.0-0.7); EOS % 2.7 % (1.5-5.0); GRAN # 1.88 (1.4-6.5); GRAN % 35.7 % (50.0-68.0); HEMOGLOBIN 10.8 g/dL (12.0-16.0); LYMPH # 2.8 (1.2-3.4); MEAN CELL VOLUME 73.3 fl (80.0-105.0); MEAN CORPUSCULAR HGB CONC 31.4 g/dl (31.0-37.0); MEAN PLATELET VOLUME 11.7 fl (7.0-11.0); MONO # 0.4 (0.1-0.6); MONO % 7.2 % (1.0-6.0); RBC 4.69 10^6/uL (3.5-6.1); RED CELL DISTRIBUTION WIDTH 14.3 % (11.5-14.5); WHITE BLOOD COUNT 5.3 10^3/ul (4.5-11.0)
--- NOTE | 2018-02-09 07:37 | RAD ---
HISTORY: chest pain COMPARISON: 01/03/2018 FINDINGS: LUNGS: No active pulmonary disease. PLEURA: No significant pleural effusion identified, no pneumothorax apparent. CARDIOVASCULAR: Normal. OSSEOUS STRUCTURES: No significant abnormalities. VISUALIZED UPPER ABDOMEN: Normal. OTHER FINDINGS: None. IMPRESSION: No active disease.
[2018-02-09 07:43] LABS: ALB/GLOB RATIO 1.3 (1.1-1.8); ALT/SGPT 33 U/L (7-56); AST/SGOT 23 U/L (14-36); BLOOD UREA NITROGEN 14 mg/dL (7-21); CALCIUM 9.4 mg/dL (8.4-10.5); GFR AFRICAN-AMERICAN > 60; GFR NON-AFRICAN AMERICAN > 60
[2018-02-09] MEDS: Insulin Reg-MEDIUM-Coverage SC SCH ×2 (08:39→12:53)
[2018-02-09 08:52] LABS: HDL CHOLESTEROL 43 mg/dL (29-60)
[2018-02-09 09:01] VITALS: BP 117/87; PULSE 99
[2018-02-09 09:04] LABS: LDL CHOLESTEROL 98 mg/dL (0-129)
--- NOTE | 2018-02-09 10:51 | CARD ---
APPROVED REPORT EKG Measurement Heart [id number] <Conclusion> Normal sinus rhythm Normal ECG
--- NOTE | 2018-02-09 11:19 | CARD ---
APPROVED REPORT EKG Measurement Heart [id number] <Conclusion> Normal sinus rhythm Possible Left atrial enlargement Septal infarct, age undetermined Abnormal ECG
--- NOTE | 2018-02-09 11:28 | CARD ---
APPROVED REPORT EXAM: Two-dimensional and M-mode echocardiogram with Doppler and color Doppler. INDICATION Chest Pain LVFX 2D DIMENSIONS Left Atrium (2D)4.2 (1.6-4.0cm)IVSd1.1 (0.7-1.1cm) LVDd4.3 (3.9-5.9cm)PWd1.1 (0.7-1.1cm) LVDs3.0 (2.5-4.0cm)FS (%) 30.2 % LVEF (%)57.9 (>50%) M-Mode DIMENSIONS Aortic Root2.90 (2.2-3.7cm)Aortic Cusp Exc.1.70 (1.5-2.0cm) Aortic Valve AoV Peak Texnpdxr577.0cm/Derik Peak GR.9mmHg Mitral Valve MV E Wihmmfxz604.0cm/sMV A Fmzohkdn63.3cm/sE/A ratio1.3 TDI Lateral E' Peak V12.00cm/sMedial E' Peak V6.34cm/sE/Lateral E'9.3 E/Medial E'17.5 Pulmonary Valve PV Peak Anpekkwz05.3cm/sPV Peak Grad.2mmHg Tricuspid Valve TR Peak Pmecsjlj021bv/sRAP XPVGOKQP33azHjHN Peak Gr.32mmHg [id number] LEFT VENTRICLE The left ventricle is normal size. There is borderline concentric left ventricular hypertrophy. The left ventricular function is normal.EF-55-60% There is normal LV segmental wall motion. The left ventricular diastolic function is normal. No left ventricle thrombus noted on this study. There is no ventricular septal defect visualized. There is no left ventricular aneurysm. There is no mass noted in the left ventricle. RIGHT VENTRICLE The right ventricle is normal size. There is normal right ventricular wall thickness. The right ventricular systolic function is normal. ATRIA The left atrium is borderline dilated. The right atrium size is normal. The interatrial septum is intact with no evidence for an atrial septal defect. AORTIC VALVE The aortic valve is thickened but opens well. No aortic regurgitation is present. There is no aortic valvular stenosis. There is no aortic valvular vegetation. MITRAL VALVE The mitral valve is thickened but opens well. Mitral regurgitation is trace to mild. There is no mitral valve stenosis. There is no evidence of mitral valve prolapse. TRICUSPID VALVE The tricuspid valve leaflets are thickened , but open well. There is mild to moderate tricuspid regurgitation.RVSP-42 mmof hg. There is no tricuspid valve stenosis. There is no tricuspid valve prolapse or vegetation. PULMONIC VALVE The pulmonary valve is normal in structure. There is no pulmonic valvular regurgitation. There is no pulmonic valvular stenosis. GREAT VESSELS The aortic root is normal in size. The ascending aorta is normal in size. The pulmonary artery is normal. The IVC is normal in size and collapses >50% with inspiration. PERICARDIAL EFFUSION There is no pleural effusion. Trivial Pericardial Effusion. <Conclusion> The left ventricle is normal size. There is borderline concentric left ventricular hypertrophy. The left ventricular function is normal.EF-55-60% Mitral regurgitation is trace to mild. There is mild to moderate tricuspid regurgitation.RVSP-42 mmof hg. The IVC is normal in size and collapses >50% with inspiration. Trivial Pericardial Effusion.
--- NOTE | 2018-02-09 13:11 | CP.PCM.DIS ---
<Scarlet Hendrickson - Last Filed: 02/09/18 13:39> Provider - Provider Date of Admission: 02/08/18 23:08 Attending physician: Leia Pérez MD Primary care physician: Adry Arriola Consults: Cardio: Brian Time Spent in preparation of Discharge (in minutes): 45 Diagnosis - Discharge Diagnosis (1) Chest pain Status: Resolved Comment: resolved Hospital Course - Lab Results Lab Results: Most Recent Lab Values WBC 5.3 10^3/ul (4.5-11.0) D 02/09/18 06:30 RBC 4.69 10^6/uL (3.5-6.1) 02/09/18 06:30 Hgb 10.8 g/dL (12.0-16.0) L 02/09/18 06:30 Hct 34.4 % (36.0-48.0) L 02/09/18 06:30 MCV 73.3 fl (80.0-105.0) L 02/09/18 06:30 MCH 23.0 pg (25.0-35.0) L 02/09/18 06:30 MCHC 31.4 g/dl (31.0-37.0) 02/09/18 06:30 RDW 14.3 % (11.5-14.5) 02/09/18 06:30 Plt Count 191 10^3/uL (120.0-450.0) 02/09/18 06:30 MPV 11.7 fl (7.0-11.0) H 02/09/18 06:30 Gran % 35.7 % (50.0-68.0) L 02/09/18 06:30 Lymph % (Auto) 54.0 % (22.0-35.0) H 02/09/18 06:30 [place] % (Auto) 7.2 % (1.0-6.0) H 02/09/18 06:30 Eos % (Auto) 2.7 % (1.5-5.0) 02/09/18 06:30 Baso % (Auto) 0.4 % (0.0-3.0) 02/09/18 06:30 Gran # 1.88 (1.4-6.5) 02/09/18 06:30 Lymph # (Auto) 2.8 (1.2-3.4) 02/09/18 06:30 [place] # (Auto) 0.4 (0.1-0.6) 02/09/18 06:30 Eos # (Auto) 0.1 (0.0-0.7) 02/09/18 06:30 Baso # (Auto) 0.02 K/mm3 (0.0-2.0) 02/09/18 06:30 Sodium 141 mmol/L (132-148) 02/09/18 06:30 Potassium 4.6 mmol/L (3.6-5.0) 02/09/18 06:30 Chloride 104 mmol/L (98-107) 02/09/18 06:30 Carbon Dioxide 28 mmol/L (21-33) 02/09/18 06:30 Anion Gap 15 (10-20) 02/09/18 06:30 BUN 14 mg/dL (7-21) 02/09/18 06:30 Creatinine 0.7 mg/dl (0.7-1.2) 02/09/18 06:30 Est GFR ( Amer) > 60 02/09/18 06:30 Est GFR (Non-Af Amer) > 60 02/09/18 06:30 POC Glucose (mg/dL) 91 mg/dL (65-110) 02/09/18 07:55 Random Glucose 91 mg/dL (70-110) 02/09/18 06:30 Hemoglobin A1c 6.7 % (4.2-6.5) H 02/09/18 06:30 Calcium 9.4 mg/dL (8.4-10.5) 02/09/18 06:30 Magnesium 2.0 mg/dL (1.7-2.2) 02/08/18 19:56 Total Bilirubin 0.2 mg/dL (0.2-1.3) 02/09/18 06:30 AST 23 U/L (14-36) 02/09/18 06:30 ALT 33 U/L (7-56) 02/09/18 06:30 Alkaline Phosphatase 73 U/L (38-126) 02/09/18 06:30 Lactate Dehydrogenase 546 U/L (333-699) 02/08/18 19:56 Total Creatine Kinase 143 U/L (35-230) 02/08/18 19:56 Troponin I 0.01 ng/mL 02/09/18 06:30 Total Protein 7.1 g/dL (5.8-8.3) 02/09/18 06:30 Albumin 4.0 g/dL (3.0-4.8) 02/09/18 06:30 Globulin 3.1 gm/dL 02/09/18 06:30 Albumin/Globulin Ratio 1.3 (1.1-1.8) 02/09/18 06:30 Triglycerides 162 mg/dL (35-160) H 02/09/18 06:30 Cholesterol 197 mg/dL (130-200) 02/09/18 06:30 LDL Cholesterol Direct 98 mg/dL (0-129) 02/09/18 06:30 HDL Cholesterol 43 mg/dL (29-60) 02/09/18 06:30 Free T4 1.99 ng/dL (0.78-2.19) 02/08/18 19:56 TSH 3rd Generation < 0.02 mIU/mL (0.46-4.68) L 02/09/18 06:30 Urine Color Yellow (YELLOW) 02/08/18 21:10 Urine Appearance Clear (CLEAR) 02/08/18 21:10 Urine pH 6.0 (4.7-8.0) 02/08/18 21:10 Ur Specific [place] 1.025 (1.005-1.035) 02/08/18 21:10 Urine Protein Negative mg/dL (<30 mg/dL) 02/08/18 21:10 Urine Glucose (UA) Negative mg/dL (NEGATIVE) 02/08/18 21:10 Urine Ketones Negative mg/dL (NEGATIVE) 02/08/18 21:10 Urine Blood Negative (NEGATIVE) 02/08/18 21:10 Urine Nitrate Negative (NEGATIVE) 02/08/18 21:10 Urine Bilirubin Negative (NEGATIVE) 02/08/18 21:10 Urine Urobilinogen 0.2 E.U./dL (<1 E.U./dL) 02/08/18 21:10 Ur Leukocyte Esterase Negative Mara/uL (NEGATIVE) 02/08/18 21:10 - Hospital Course Hospital Course: Upon Admission 52 year old female PMHx DM, HLD, Hyperthyroidism s/p thyroidectomy (Now Hypothyroidism), GERD, and uterine fibroids who presents complaining of intermittent non-radiating, reproducible 5/10, dull chest pain x 3 days. Her chest pain occured during exertion and not at rest. She attributed the pain to GERD at first and took Pepcid which was unsuccessful in relieving her symptoms. She could not identify any relieving or exacerbating factors. Patient was admitted to [facility] and Dr. Torres/Dr. Rene cardiology was consulted. Patient had 3 serial negative troponin and EKG had no acute findings. Patient had an Echo which showed LV normal size, borderline concentric LVH, LV function normal with EF 55-60%, trace to mild mitral regurg, mild to mod tricuspid regurg , RVSP 42mmHG, IVC normal and collapses with >50% inspiration and trivial pericardial effusion. Patient also had a stress test which was unremarkable as per cardio. Nuclear scan to be followed day after discharge. Patient was continued on home medications and additionally started on ASA. On day of discharge, patient reported resolution of symptoms and was deemed medically stable for discharge. 1) chest pain r/o ACS: resolved 2) Hx of DM: continue home metformin 48 hrs post d/c 3) Hx of HLD: continue home meds 4) Hx of HTN: continue home meds 5) Hx of thyroid disease: continue home meds- f/u with PMD for repeat TFTs in 4- 6 weeks Upon Discharge Patient stable for discharge home as per hospitalist and cardiology. Patient to take medications as prescribed. Patient to resume home metformin 48 hours after discharge. Patient to follow up with Primary MD within 7 days and to have repeat Thyroid Function Tests within 4-6 weeks after discharge. If symptoms persist or worsen patient to visit ER immediately. Instructions discussed in detail with patient who understands and agrees. Discharge Exam - Head Exam Head Exam: ATRAUMATIC, NORMAL INSPECTION, NORMOCEPHALIC - Eye Exam Eye Exam: EOMI, Normal appearance, PERRL. absent: Conjunctival injection, Scleral icterus Pupil Exam: NORMAL ACCOMODATION - ENT Exam ENT Exam: Mucous Membranes Moist - Neck Exam Neck exam: Full Rom, Normal Inspection - Respiratory Exam Respiratory Exam: Clear to PA & Lateral, NORMAL BREATHING PATTERN, UNREMARKABLE. absent: Accessory Muscle Use, Rales, Rhonchi, Wheezes, Respiratory Distress - Cardiovascular Exam Cardiovascular Exam: REGULAR RHYTHM, RRR, +S1, +S2 - GI/Abdominal Exam GI & Abdominal Exam: Normal Bowel Sounds, Soft. absent: Firm, Guarding, Rigid, Tenderness - Rectal Exam Rectal Exam: Deferred - Extremities Exam Extremities exam: normal capillary refill, normal inspection, pedal pulses present - Neurological Exam Neurological exam: Alert, CN II-XII Intact, Oriented x3 - Psychiatric Exam Psychiatric exam: Normal Affect, Normal Mood - Skin Skin Exam: Dry, Intact, Normal Color, Warm Discharge Plan - Discharge Medications Prescriptions: amLODIPine [Norvasc] 5 mg PO DAILY #30 tab Aspirin [Aspirin Chewable] 81 mg PO DAILY #30 ctb Atorvastatin [Lipitor] 20 mg PO DIN #30 tab Levothyroxine [Synthroid] 125 mcg PO ACB #30 tab Lisinopril [Zestril] 10 mg PO DAILY #30 tab metFORMIN [glucOPHAGE] 850 mg PO BID #60 tab - Follow Up Plan Condition: FAIR Disposition: HOME/ ROUTINE Instructions: Echocardiogram, Adult, Cardiac Stress Test, Heart Disease in Women (DC), Amlodipine, Aspirin, Atorvastatin, Levothyroxine, Metformin, Chest Pain (DC), Chest Pain (GEN) Additional Instructions: Patient stable for discharge home as per hospitalist and cardiology. Patient to take medications as prescribed. Patient to resume home metformin 48 hours after discharge. Patient to follow up with Primary MD within 7 days and to have repeat Thyroid Function Tests within 4-6 weeks after discharge. If symptoms persist or worsen patient to visit ER immediately. Instructions discussed in detail with patient who understands and agrees. Referrals: Adry Arriola [Primary Care Provider] - Clinical Quality Measures - Date & Time of Discharge Summary Date of Discharge Summary: 02/09/18 Time of Discharge Summary: 13:49 <Leia Pérez - Last Filed: 02/09/18 14:25> Provider - Provider Date of Admission: 02/08/18 23:08 Attending physician: Leia Pérez MD Primary care physician: Adry Kaye Zein[facility] Course - Lab Results Lab Results: Most Recent Lab Values WBC 5.3 10^3/ul (4.5-11.0) D 02/09/18 06:30 RBC 4.69 10^6/uL (3.5-6.1) 02/09/18 06:30 Hgb 10.8 g/dL (12.0-16.0) L 02/09/18 06:30 Hct 34.4 % (36.0-48.0) L 02/09/18 06:30 MCV 73.3 fl (80.0-105.0) L 02/09/18 06:30 MCH 23.0 pg (25.0-35.0) L 02/09/18 06:30 MCHC 31.4 g/dl (31.0-37.0) 02/09/18 06:30 RDW 14.3 % (11.5-14.5) 02/09/18 06:30 Plt Count 191 10^3/uL (120.0-450.0) 02/09/18 06:30 MPV 11.7 fl (7.0-11.0) H 02/09/18 06:30 Gran % 35.7 % (50.0-68.0) L 02/09/18 06:30 Lymph % (Auto) 54.0 % (22.0-35.0) H 02/09/18 06:30 [place] % (Auto) 7.2 % (1.0-6.0) H 02/09/18 06:30 Eos % (Auto) 2.7 % (1.5-5.0) 02/09/18 06:30 Baso % (Auto) 0.4 % (0.0-3.0) 02/09/18 06:30 Gran # 1.88 (1.4-6.5) 02/09/18 06:30 Lymph # (Auto) 2.8 (1.2-3.4) 02/09/18 06:30 [place] # (Auto) 0.4 (0.1-0.6) 02/09/18 06:30 Eos # (Auto) 0.1 (0.0-0.7) 02/09/18 06:30 Baso # (Auto) 0.02 K/mm3 (0.0-2.0) 02/09/18 06:30 Sodium 141 mmol/L (132-148) 02/09/18 06:30 Potassium 4.6 mmol/L (3.6-5.0) 02/09/18 06:30 Chloride 104 mmol/L (98-107) 02/09/18 06:30 Carbon Dioxide 28 mmol/L (21-33) 02/09/18 06:30 Anion Gap 15 (10-20) 02/09/18 06:30 BUN 14 mg/dL (7-21) 02/09/18 06:30 Creatinine 0.7 mg/dl (0.7-1.2) 02/09/18 06:30 Est GFR ( Amer) > 60 02/09/18 06:30 Est GFR (Non-Af Amer) > 60 02/09/18 06:30 POC Glucose (mg/dL) 91 mg/dL (65-110) 02/09/18 07:55 Random Glucose 91 mg/dL (70-110) 02/09/18 06:30 Hemoglobin A1c 6.7 % (4.2-6.5) H 02/09/18 06:30 Calcium 9.4 mg/dL (8.4-10.5) 02/09/18 06:30 Magnesium 2.0 mg/dL (1.7-2.2) 02/08/18 19:56 Total Bilirubin 0.2 mg/dL (0.2-1.3) 02/09/18 06:30 AST 23 U/L (14-36) 02/09/18 06:30 ALT 33 U/L (7-56) 02/09/18 06:30 Alkaline Phosphatase 73 U/L (38-126) 02/09/18 06:30 Lactate Dehydrogenase 546 U/L (333-699) 02/08/18 19:56 Total Creatine Kinase 143 U/L (35-230) 02/08/18 19:56 Troponin I 0.01 ng/mL 02/09/18 06:30 Total Protein 7.1 g/dL (5.8-8.3) 02/09/18 06:30 Albumin 4.0 g/dL (3.0-4.8) 02/09/18 06:30 Globulin 3.1 gm/dL 02/09/18 06:30 Albumin/Globulin Ratio 1.3 (1.1-1.8) 02/09/18 06:30 Triglycerides 162 mg/dL (35-160) H 02/09/18 06:30 Cholesterol 197 mg/dL (130-200) 02/09/18 06:30 LDL Cholesterol Direct 98 mg/dL (0-129) 02/09/18 06:30 HDL Cholesterol 43 mg/dL (29-60) 02/09/18 06:30 Free T4 1.99 ng/dL (0.78-2.19) 02/08/18 19:56 TSH 3rd Generation < 0.02 mIU/mL (0.46-4.68) L 02/09/18 06:30 Urine Color Yellow (YELLOW) 02/08/18 21:10 Urine Appearance Clear (CLEAR) 02/08/18 21:10 Urine pH 6.0 (4.7-8.0) 02/08/18 21:10 Ur Specific [place] 1.025 (1.005-1.035) 02/08/18 21:10 Urine Protein Negative mg/dL (<30 mg/dL) 02/08/18 21:10 Urine Glucose (UA) Negative mg/dL (NEGATIVE) 02/08/18 21:10 Urine Ketones Negative mg/dL (NEGATIVE) 02/08/18 21:10 Urine Blood Negative (NEGATIVE) 02/08/18 21:10 Urine Nitrate Negative (NEGATIVE) 02/08/18 21:10 Urine Bilirubin Negative (NEGATIVE) 02/08/18 21:10 Urine Urobilinogen 0.2 E.U./dL (<1 E.U./dL) 02/08/18 21:10 Ur Leukocyte Esterase Negative Mara/uL (NEGATIVE) 02/08/18 21:10 Attending/Attestation - Attestation I have personally seen and examined this patient.: Yes I have fully participated in the care of the patient.: Yes I have reviewed all pertinent clinical information, including history, physical exam and plan: Yes Notes (Text): 02/09/18 14:20 52 year old female with past medical history of diabetes, dyslipidemia, GERD and hyperthyroidism s/p thyroidectomy. now with hypothyroidism, presented last night with complaint of chest pain. Serial cardiac enzymes were negative and ACS was ruled out. Her chest pain resolved. She was seen by cardiology and underwent cardiac stress test today. Case was discussed with Dr. Torres. Patient is discharged home to follow up with her pmd. Will call with results of her stress test. Thyroid medication was adjusted; recommended to repeat TFTs in 4-6 weeks. Leia Pérez MD Hospitalist.
--- NOTE | 2018-02-09 20:51 | CON ---
DATE: 02/09/2018 REASON FOR CONSULTATION: Followup cardiac evaluation, chest pain. 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 The patient states the chest pain started Thursday off and on in the epigastric area, going to the retrosternal area and then goes to the left side of the chest, off and on and got better, then yesterday again, so the patient decided to come to seek medical advice. History of a stress test [address] Terrance Gao, it was told negative. Last time saw Dr. Terrance Gao 2 years ago. Denies any episode of dyspnea on exertion or chest pian on exertion prior to this episode. PAST MEDICAL HISTORY: Significant for diabetes, hypertension, and hyperlipidemia. SOCIAL HISTORY: Denies smoking. Denies any history of alcohol abuse. FAMILY HISTORY: Significant for coronary artery disease in father, not sure exactly what happened, but it looks like a heart problem, details unknown. Also significant for the son has sarcoidosis, cardiomyopathy, on transplant list [facility]. PAST SURGICAL HISTORY: Significant for thyroidectomy and appendectomy. CURRENT MEDICATIONS: The patient is taking at home metformin 850 mg twice a day, amlodipine 5 mg twice a day, simvastatin 40 mg daily, lisinopril 20 mg daily, and levothyroxine 125 daily. REVIEW OF SYSTEMS: As per HPI. PHYSICAL EXAMINATION: VITAL SIGNS: Temperature afebrile, heart rate 99, blood pressure 117/87. HEENT: PERRLA. Extraocular muscles intact. NECK: Supple. No carotid bruit or thyromegaly. CHEST: Clear to auscultation. HEART: S1 and S2 regular. ABDOMEN: Soft. EXTREMITIES: Clubbing and cyanosis negative. LABORATORY DATA: EKG shows normal sinus, left atrial abnormality, poor R-R progression, rate of 81. Blood workup as follows: WBC 5.3, hemoglobin 10.8, hematocrit 34.4, platelet count 191. Chemistry shows sodium 141, potassium 4.6, chloride 104, carbon dioxide 28, anion gap of 15, BUN 14, creatinine 0.7. TSH 0.02. Troponin 0.01, 0.01, x2 negative. IMPRESSION: Though pain appears atypical, but given the multiple risk factors of coronary artery disease including diabetes, hypertension, hyperlipidemia, and mild obesity, suggest echocardiogram and a stress test. Further recommendation after echocardiogram and stress test. We will keep n.p.o. We will get lipid profile, hemoglobin A1c. Further recommendation will be made depending on the hospital course and the finding of initial workup. We will keep n.p.o. Thank you, Dr. Farah, for providing us the opportunity in taking care of the patient, Octaviano Ortiz. We will follow with you. Devika Torres MD
--- NOTE | 2018-02-10 00:40 | CARD ---
APPROVED REPORT Protocol: AMY Test Type: Sestamibi Stress Test Attending Physician: Dr. Devika Torres Referring Physician: Dr. Danilo Farah Test Indications: Chest Pain Height:5 ft 3 in Weight:190lbs Medications: Tylenol,Amlodipine,Atorvastatin, Ibuprofen,Humulin, Levothyroxine, Zestril,Pantoprazole Medical History: 52 y/o female. Hx of diabetes,hypertension,high cholesterol,hypotension,hypothyroid,gerd, anemia,thyroidectomy. Target HR: 168 bpm Resting ECG: normal Resting Heart Rate: 93 bpm Resting Blood Pressure: 110/80mmHg Submaximum (85%): 143 bpm POST EXERCISE Reason for Termination: Fatigue Target HR: No Max HR: 160 bpm 96% of Maximum Predicted HR: 168 bpm Exercise duration: 07:00 min:sec, 3 Stage Exercise capacity: 8.5METs Max Blood Pressure: 148/70mmHg Blood Pressure response to exercise: normal resting BP - appropriate response Heart Rate response to exercise: appropriate Chest Pain: No, none Angina index: 0 Arrhythmia: No, none ST Change: No, none Deviation: 0 mm TEST SUMMARY [id number]:080.00.01.081/.0. [id number]:[id number]/80.0. PRETESTHYPERV.00:020.00.01.088515/80.0. PRETESTWARM-UP06:[id number]/80.1. EXERCISESTAGE 103:001.710.04.7046536/76.1. EXERCISESTAGE 203:[id number]/70.0. EXERCISESTAGE 301:013.414.08.5160/.1. [id number]:[id number]/80.0. INTERPRETATION Stress EKG Conclusion: Negative Stress test for Ischemia and for chest pain, Nuclear scan to follow. Signed by Devika Torres Electronically Approved: 02/09/2018 11:52:36 EXAM: Myocardial Perfusion REST/STRESS Stress Test Type: Exercise Treadmill Imaging Protocol Rest Spect myocardial perfusion imaging was performed in supine position 45 minutes following the injection of 10.5 mCi of Tc-99 Myoview. At peak stress, the patient was injected intravenously with 30.6mCi of Tc-99 tetrofosmin after an exercise time of 7 minutes and 00 seconds. Gated Stress Spect was performed 65 minutes after intravenous Tc-99 Myoview injection. The images were gated to evaluate regional wall motion and calculate ventricular ejection fraction.Images were reconstructed using backfilter projection method in short horizontal and verticle long axis. Spect slices were generated. LV Perfusion The quality of the study is good. The left ventricle is within normal limits in size. The right ventricle is unremarkable. The lung uptake is normal. The distribution of tracer reveals mildly to moderately decreased perfusion involving distal anteroseptal and apical matos on the stress study. The remainder of the LV myocardium is unremarkable. The rest myocardial perfusion study shows no significant change. Wall Motion Wall motion study shows good contractility of the left ventricle. LVEF = 61%. Conclusion 1. Essentially normal SPECT myocardial perfusion study. 2. Fixed, distal anteroseptal/ apical defects are most likely due to breast attenuation. 3. Normal gated wall motion of the left ventricle.
== END 2018-02-09 16:30 | disposition home or self-care (01) ==
LOC: ED 19:12 → ERH 23:08 → 2RSO 02-09 01:56
PROVIDERS: ADMIT Internal Medicine; ATTEND Internal Medicine
DX: R07.89 Other chest pain (principal); E10.9 Type 1 diabetes mellitus without complications; E78.5 Hyperlipidemia, unspecified; E89.0 Postprocedural hypothyroidism; I10 Essential (primary) hypertension; I42.9 Cardiomyopathy, unspecified; K21.9 Gastro-esophageal reflux disease without esophagitis; D25.9 Leiomyoma of uterus, unspecified; Z91.14 Patient's other noncompliance with medication regimen; Z87.891 Personal history of nicotine dependence; Z82.49 Family history of ischemic heart disease and other diseases of the circulatory system
CPT/HCPCS: 36415; 71045; 80053; 80061; 81003; 82550; 82948; 83036; 83615; 83735; 84439; 84443; 84484; 85025; 93005; 93017; 93306; G0378